=== PATIENT | female | born 1935 | race Caucasian/White ===

== ENCOUNTER 2019-02-12 22:22 | Inpatient (IN) | payer MEDICARE ==
[~2019-02-12] VITALS: Ht 154.9 cm; Wt 60.4 kg
[2019-02-13 00:45] VITALS: BP 104/59
[2019-02-13] MEDS ORDERED: MOM 30ML SUSPENSION UDC PO PRN (01:30)
[2019-02-13] MEDS: D5W/0.45% SODIUM CHLORIDE 1,000 ML IV SCH ×3 (01:59→21:45)
[2019-02-13 02:10] LABS: HEMATOCRIT 31.8 % (36.0-47.0); HEMOGLOBIN 10.8 g/dl (12.0-15.5); MEAN CORPUSCULAR HEMOGLOBIN 32.6 pg (27.0-33.0); MEAN CORPUSCULAR VOLUME 96.1 fl (80.0-96.0); PLATELET COUNT, AUTOMATED 244 10^3/uL (150-450); RED BLOOD COUNT 3.31 10^6/uL (4.00-5.40); WHITE BLOOD COUNT 14.4 10^3/uL (4.0-10.0)
[2019-02-13] MEDS ORDERED: CALC-239 PO (02:31)
[2019-02-13] MEDS ORDERED: MULTTAB61 PO (02:31)
[2019-02-13] MEDS ORDERED: ASPI81TA85 PO (02:31)
[2019-02-13] MEDS ORDERED: D-101000 PO (02:31)
[2019-02-13] MEDS ORDERED: OMEG10002 PO (02:31)
[2019-02-13] MEDS ORDERED: RANI150T PO (02:31)
[2019-02-13] MEDS ORDERED: BENA40TA7 PO (02:31)
[2019-02-13] MEDS ORDERED: PRAV20TA2 PO (02:31)
[2019-02-13 02:36] LABS: ALBUMIN 1.8 GM/DL (3.2-5.2); ALT/SGPT 56 U/L (12-78); BILIRUBIN,TOTAL 0.7 MG/DL (0.2-1.0); BLOOD UREA NITROGEN 43 MG/DL (7-18); CARBON DIOXIDE LEVEL 23 MEQ/L (21-32); CHLORIDE LEVEL 105 MEQ/L (98-107); GLOMERULAR FILTRATION RATE 28.7 (>32); GLUCOSE, FASTING 122 MG/DL (70-100); MAGNESIUM LEVEL 2.1 MG/DL (1.8-2.4); POTASSIUM SERUM 3.9 MEQ/L (3.5-5.1); SODIUM LEVEL 136 MEQ/L (136-145); TOTAL PROTEIN 5.4 GM/DL (6.4-8.2); TROPONIN I < 0.02 NG/ML (< 0.10)
--- NOTE | 2019-02-13 03:39 | HPEPDOC ---
General Date of Admission Feb 13, 2019 at 00:45 Date of Service: Feb 13, 2019 Chief Complaint The patient is a 84-year-old female admitted with a reason for visit of Pvc (Premature Ventricular Contration). Source: Patient, Family Exam Limitations: No limitations Timing/Duration: Week(s) Severity: Mild History of Present Illness Ms. Rossi is an 84 years old woman who was seen at her PCP office yesterday for generalized weakness, poor appetite, poor oral intake and confused at times. PVCs were note din the EKG, and pt was sent to ER. [facility]: WBC 16K, Hb 12.5, Na 132, Cr 1.9, Lactate 1.6, D-dime 14.35. Vitals good, afebrile. Pt had a normal CXR and head CT. UA: negative nitrate, LE 1+, plenty bacteria. PT denies urinary, GI, respiratory or cardiac symptoms. Pt was transferred here for management of suspected urosepsis and PVCs w/u. Pt has familial balance problem, but daughter reports pt is also experiencing lightheadedness recently. But hx is very vague. Daughter appears to be exaggerat ing at times, while the pt dismisses most of the daughter's concerns.. EKG: SR with frequent PVCs, no other abnormalities. Home Medications Scheduled Aspirin (Aspir 81) 81 Mg Tablet.dr, 81 MG PO DAILY, (Reported) Benazepril HCl (Benazepril HCl) 40 Mg Tablet, 40 MG PO DAILY, (Reported) Calcium Carbonate/Vitamin D3 (Calcium 600-Vit D3 200 Tablet) 1 Each Tablet, 1 TAB PO DAILY, (Reported) Cholecalciferol (Vitamin D3) (Vitamin D3) 1,000 Unit Capsule, 1,000 UNIT PO DAILY, (Reported) Multivitamin (Multivitamins) 1 Each Tablet, 1 TAB PO DAILY, (Reported) Chaplin-3/Dha/Epa/Fish Oil (Fish Oil 1,000 mg Softgel) 1 Each Capsule, 1 CAP PO DAILY, (Reported) Pravastatin Sodium (Pravastatin Sodium) 20 Mg Tablet, 20 MG PO DAILY, (Reported) Ranitidine HCl (Ranitidine HCl) 150 Mg Tablet, 1 TAB PO DAILY, (Reported) Allergies Coded Allergies: No Known Allergies (Unverified , 02/13/19) Past Medical History Medical History HTN, HLD, GERD Family History Significant Family History: Other (balance issues) Social History * Smoker: former Smoker Alcohol: Denies Drugs: denies A-FIB/CHADSVASC A-FIB History Current/History of A-Fib/PAF?: No Review of Systems Constitutional: Reports: Weakness; Denies: Chills, Fever, Malaise Eyes: Denies: Pain, Vision change ENT: Denies: Head Aches, Ear Pain Skin: Denies: Rash, Lesions Pulmonary: Denies: Dyspnea, Cough Cardiovascular: Denies: Chest Pain, Palpitations Gastrointestinal: Denies: Nausea, Vomiting, Abdominal Pain, Diarrhea Genitourinary: Denies: Dysuria, Frequency Hematologic: Denies: Bruising, Bleeding Excessively Endocrine: Denies: Polydipsia, Polyphagia Musculoskeletal: Denies: Neck Pain, Back Pain Neurological: Reports: Weakness; Denies: Numbness Psych: Reports: Mood Normal Physical Examination General Exam: Positive: Alert, Cooperative, No Acute Distress Eye Exam: Positive: PERRLA, Conjunctiva & lids normal ENT Exam: Positive: Atraumatic Neck Exam: Positive: Supple; Negative: JVD Chest Exam: Positive: Clear to auscultation, Normal air movement Heart Exam: Positive: Rate Normal, Regular Rhythm; Negative: Murmurs Abdomen Exam: Positive: Normal bowel sounds Extremity Exam: Negative: Edema, Normal pulses Skin Exam: Positive: Nl turgor and temperature Neuro Exam: Positive: Normal Speech, Strength at 5/5 X4 ext, Normal Tone Psych Exam: Positive: Mental status NL, Mood NL Vital Signs see nursing note Laboratory Data Labs 24H Laboratory Tests 2 02/13/19 02:03: Nucleated Red Blood Cells % (auto) 0.0, Anion Gap 8, Glomerular Filtration Rate 28.7L, Lactic Acid Level 0.9, Blood Urea Nitrogen 43H, Creatinine 1.80H, Sodium Level 136, Potassium Level 3.9, Chloride Level 105, Carbon Dioxide Level 23, Ca lcium Level 8.0L, Aspartate Amino Transf (AST/SGOT) 47H, Alanine Aminotransferase (ALT/SGPT) 56, Alkaline Phosphatase 101, Total Bilirubin 0.7, Total Protein 5.4L, Albumin 1.8L, Magnesium Level 2.1, Troponin I < 0.02, Albumin/Globulin Ratio 0.50L CBC/BMP Laboratory Tests 02/13/19 02:03 Red Blood Count 3.31 L, Mean Corpuscular Volume 96.1 H, Mean Corpuscular Hemoglobin 32.6, Mean Corpuscular Hemoglobin Concent 34.0, Red Cell Distribution Width 11.6, Calcium Level 8.0 L, Aspartate Amino Transf (AST/SGOT) 47 H, Alanine Aminotransferase (ALT/SGPT) 56, Alkaline Phosphatase 101, Total Bilirubin 0.7, Total Protein 5.4 L, Albumin 1.8 L Assessment/Plan Frequent PVCs - Keep in observation with Tele - Pt is asymptomatic - Mg level is normal - Repeat troponin; Echo in AM UTI is unlikely - No indication of antibiotic use int he absence of symptoms Plan / VTE VTE Prophylaxis Ordered?: No VTE Exclusion Mechanical Proph: Low Risk for VTE VTE Exclusion Pharmacological: At Low Risk for VTE Plan IVF: Initiate Diet: Continue Current Activity: Continue Current Therapy: PT, OT Anticipated Discharge: Home MICHELE GARAY MD Feb 13, 2019 03:39
[2019-02-13 06:00] VITALS: BP 127/80
[2019-02-13] MEDS: ASPIRIN 81 MG ENTERIC TAB PO SCH (09:03)
[2019-02-13] MEDS: PRAVASTATIN 20 MG TAB PO SCH (09:03)
[2019-02-13] MEDS: FAMOTIDINE 20 MG TAB PO SCH ×2 (09:03→09:08)
[2019-02-13] MEDS: BENAZEPRIL 20 MG TAB PO SCH (09:46)
[2019-02-13 10:33] LABS: CALCIUM LEVEL 8.3 MG/DL (8.8-10.2); CREATININE FOR GFR 1.66 MG/DL (0.55-1.30); GLOMERULAR FILTRATION RATE 31.5 (>32); MAGNESIUM LEVEL 2.1 MG/DL (1.8-2.4); POTASSIUM SERUM 4.3 MEQ/L (3.5-5.1)
[2019-02-13 11:28] LABS: THYROID STIMULATING HORMONE 1.07 uIU/ML (0.358-3.740)
[2019-02-13 14:00] VITALS: BP 113/62
--- NOTE | 2019-02-13 17:06 | IPN ---
DATE: 02/13/2019 The patient denies any chest pain, pressure, tightness, shortness of breath, or chest pain. Telemetry continues to have premature ventricular contractions (PVCs). The patient's magnesium and potassium have optimized at 4.3 and magnesium of 2.1. Patient complains of generalized weakness, not feeling well. No nausea or vomiting. No dysuria, urgency or frequency. OBJECTIVE: PHYSICAL EXAMINATION: Vitals: Temperature 98.4, pulse 85, respiratory rate 18, blood pressure 115/72, 95% on 2 liters nasal cannula. GENERAL: Patient is awake, alert and oriented to person. She is answering questions appropriately. No jugular venous distention (JVD). No thyromegaly. No cervical lymphadenopathy. LUNGS: Clear to auscultation. No wheezing, rales or rhonchi. HEART: S1, S2, sinus rhythm. ABDOMEN: Soft, nontender. Nondistended. Positive bowel sounds. EXTREMITIES: No cyanosis, clubbing or any pitting edema. HOSPITAL MEDICATIONS: - aspirin 81 daily - benazepril 40 mg daily - Pravachol 20 daily - Pepcid 40 daily - D5 normal saline 100 per hour - Tylenol 650 - milk of magnesium - Mylanta LABORATORY DATA: White count 14.4, hemoglobin 10, hematocrit 31, platelet count 244. Sodium 136, potassium 4.2, chloride 106, bicarbonate 22, BUN 36, creatinine 1.6. Glucose 188. Calcium of 8.3. Albumin of 1.8. ASSESSMENT AND PLAN: This is an 84-year-old female presented with generalized weakness, decreased appetite and oral intake, and confusion. Patient was found to have PVCs on EKG. CT of head and chest x-ray were normal. UA shows negative nitrites. Patient was transferred for suspected urosepsis and PVC workup. Cardiac markers were negative. Patient had no acute ischemic symptoms. ACTIVE ISSUES: 1. PVCs. Continue on telemetry. Patient's magnesium and potassium have been optimized. Echocardiogram has been ordered. Patient denies any acute ischemic symptoms. Cardiac markers were unremarkable with troponin less than 0.02. 2. Renal failure. Unknown whether this is chronic kidney disease. Creatinine is 1.8. Hydration has been provided with some improvement at 1.66. No complaints of shortness of breath. No hyperkalemia or metabolic acidosis. 3. Abnormal urinalysis. Currently does not have a repeat urinalysis here. 4. Dyslipidemia. Continue on pravastatin. 5. Hypertension. Continue on benazepril. 6. Poor appetite. Currently on regular diet. MTDD
--- NOTE | 2019-02-13 17:25 | REP ---
RENAL ULTRASOUND: Real-time sonographic evaluation of the kidneys performed and demonstrates both kidneys to be normal in size and echotexture, right kidney measuring 9.8 x 4.5 x 4.9 cm and left kidney 10.0 x 4.5 x 3.9 cm. There is no hydronephrosis bilaterally. A cyst in the mid left kidney contains a thin septation and measures 2.4 x 2.2 x 2.0 cm. Urinary bladder measures 5.2 x 7.2 x 5.0 cm for a total volume of 8 mL. There are ureteral jets in the urinary bladder with Doppler color evaluation. No gross mass or calculus is seen in the bladder. IMPRESSION: No hydronephrosis. Left renal cyst. Electronically Signed by Jorge Kessler MD 02/13/2019 05:59 P
[2019-02-13] MEDS: MAALOX 30 ML SUSP *UDC PO PRN (18:06)
[2019-02-13 22:00] VITALS: BP 103/61
[2019-02-14 06:00] VITALS: BP 114/60
[2019-02-14 06:09] LABS: BASO % 0.2 % (0.0-1.0); EOS # 0.4 10^3/uL (0.0-0.5); EOS % 2.6 % (0.0-3.0); HEMATOCRIT 31.7 % (36.0-47.0); HEMOGLOBIN 10.5 g/dl (12.0-15.5); LYMPH # 0.7 10^3/uL (1.5-5.0); LYMPH % 4.5 % (24.0-44.0); MEAN CORPUSCULAR HEMOGLOBIN 31.7 pg (27.0-33.0); MEAN CORPUSCULAR HGB CONC 33.1 g/dl (32.0-36.5); MEAN CORPUSCULAR VOLUME 95.8 fl (80.0-96.0); MONO # 1.1 10^3/uL (0.0-0.8); MONO % 7.4 % (0.0-5.0); NEUTROPHILS # 12.4 10^3/uL (1.5-8.5); NEUTROPHILS % 83.6 % (36.0-66.0); PLATELET COUNT, AUTOMATED 295 10^3/uL (150-450); RED BLOOD COUNT 3.31 10^6/uL (4.00-5.40); WHITE BLOOD COUNT 14.8 10^3/uL (4.0-10.0)
[2019-02-14 06:35] LABS: ALBUMIN 1.7 GM/DL (3.2-5.2); ALT/SGPT 45 U/L (12-78); BILIRUBIN,TOTAL 0.5 MG/DL (0.2-1.0); BLOOD UREA NITROGEN 22 MG/DL (7-18); CALCIUM LEVEL 8.4 MG/DL (8.8-10.2); CARBON DIOXIDE LEVEL 24 MEQ/L (21-32); CHLORIDE LEVEL 107 MEQ/L (98-107); GLOMERULAR FILTRATION RATE 45.8 (>32); GLUCOSE, FASTING 123 MG/DL (70-100); POTASSIUM SERUM 4.1 MEQ/L (3.5-5.1); SODIUM LEVEL 139 MEQ/L (136-145); TOTAL PROTEIN 5.2 GM/DL (6.4-8.2)
[2019-02-14 09:52] VITALS: BP 112/60
[2019-02-14] MEDS: ASPIRIN 81 MG ENTERIC TAB PO SCH (09:52)
[2019-02-14] MEDS: PRAVASTATIN 20 MG TAB PO SCH (09:52)
[2019-02-14] MEDS: BENAZEPRIL 20 MG TAB PO SCH (09:52)
[2019-02-14] MEDS: D5W/0.45% SODIUM CHLORIDE 1,000 ML IV SCH (12:03)
--- NOTE | 2019-02-14 12:40 | ECHO ---
DATE OF PROCEDURE: 02/13/2019 REFERRING PHYSICIAN: Dr. Ramey INDICATION: Abnormal ECG. HEIGHT: 61 inches. WEIGHT: 60 kg 2D MEASUREMENTS: Aortic annulus: 1.6 cm Aortic root: 3.0 cm Left atrium: 2.7 cm Ventricular septum: 1.01 cm Posterior wall: 1.92 cm Left ventricle diastole: 3.5 cm Inferior vena cava: 1.6 cm, more than 50% respiratory variation, CVP estimated to be 5-10 mmHg. DOPPLER MEASUREMENTS: Aortic valve velocity: 108 cm/s LVOT velocity: 31.0 cm/s Mitral E velocity: 62.4 cm/s Mitral A velocity: 86.3 cm/s Mitral deceleration time: 210 ms Moderate tricuspid regurgitation. Estimated right ventricle systolic pressure: 45 to 50 mmHg assuming a right atrial pressure of 5 to 10 mmHg. Very mild pulmonic regurgitation. Pulmonary artery systolic pressure: 41 mmHg. MITRAL ANNULAR TISSUE DOPPLER: E prime septal: 6.1 cm/s E prime lateral: 10.4 cm/s DESCRIPTION: Rhythm was sinus rhythm to sinus tachycardia with occasional PVCs. Image quality was fair. No pericardial effusion. This was a 2D, M-mode, color flow Doppler and pulse wave Doppler examination and included mitral annular tissue Doppler. CONCLUSIONS: 1. Normal left ventricle internal dimensions. Hyperdynamic LV systolic function with left ventricular ejection fraction of 80% by visual estimate. Grade 1 LV diastolic dysfunction. 2. Suggestive of moderate elevation of pulmonary artery systolic pressure and estimated right ventricle systolic pressure. Mild tricuspid regurgitation. Normal right ventricle size and systolic function. 3. Mild aortic valve sclerosis of a 3-cusp aortic valve. No aortic regurgitation. 4. Mild mitral annular calcification. No mitral regurgitation. 5. No pericardial effusion.
[2019-02-14 13:27] LABS: CPK CREATINE PHOSPHOKINASE 60 U/L (26-192); MB/CK RELATIVE INDEX 1.67 (< OR =4); NT-PRO BNP 1498 PG/ML (<450); TROPONIN I < 0.02 NG/ML (< 0.10)
--- NOTE | 2019-02-14 13:44 | REP ---
Portable chest, 01:28 p.m., single AP view with the patient semi upright: There are no comparison chest studies. There is a skin fold artifact in the right upper lobe. The lung mcgregor otherwise clear. Cardiac size is upper normal. The arley, mediastinum, skeletal structures are unremarkable. Impression: No acute cardiopulmonary findings. Probable skin fold artifact in the right upper lobe. Electronically Signed by Jorge Alvarenga MD 02/14/2019 01:36 P
[2019-02-14 14:00] VITALS: BP 113/67
--- NOTE | 2019-02-14 14:24 | IPN ---
DATE: 02/14/2019 SUBJECTIVE: Patient complains of generalized weakness, fatigue, increase in sleepiness, decrease in appetite with some weight loss at home, otherwise denies any nausea, vomiting, abdominal pain, bright red blood per rectum, melena, near syncope, lightheadedness or dizziness. OBJECTIVE: PHYSICAL EXAMINATION: Vital signs: Temperature 98.8, pulse 91, respiratory rate 20, blood pressure 114/60, 91% on 1 liter nasal cannula. Generally: Patient is sitting at 45-degree head of bed elevation. She has no jugular venous distention or thyromegaly. Pupils are round and reactive. Extraocular muscles are intact. No cervical lymphadenopathy, thyromegaly, moist mucous membranes. Lungs are diminished with fine crackles at the bases. Heart: S1, S2, sinus rhythm. No murmurs, rubs or gallops. Abdomen is soft, nontender, nondistended. Extremities: No cyanosis, clubbing or any pitting edema. HOSPITAL MEDICATIONS: - aspirin 81 daily - benazepril - Pravachol - Pepcid - D5 half normal saline has been discontinued. - Milk of Magnesia. - pravastatin LABORATORY DATA: White count 14, hemoglobin 10, hematocrit 31, platelet count 295. Sodium 139, potassium 4.1, chloride 107, bicarbonate 24, BUN 22, creatinine 1.2, glucose 123, albumin of 1.7, urine culture 1+ protein for urobilinogen, negative leukocyte esterase, small amorphous sediment. Renal ultrasound: No hydronephrosis. Left renal cyst. ASSESSMENT AND PLAN: This is an 84-year-old female who presented with generalized weakness, decreased appetite and oral intake and was found by primary doctor to have preventricular contractions (PVCs) on EKG. Patient was transferred to [facility] for further evaluation. CT of the head, chest, x-rays were normal. Urinalysis showed negative nitrites. Patient had a PVC workup including an echocardiogram, the report of which is still pending. She was found to have an acute kidney injury, most likely secondary to dehydration. CURRENT ISSUES: 1. PVCs on telemetry: Patient has had no sustained ventricular tachycardia. Her magnesium and potassium are within normal limits. Echo has been ordered. The report is not available. She denies any chest pain, pressure or tightness, shortness of breath. Cardiac markers were unremarkable. 2. Renal failure due to dehydration: Resolved. Patient responded to intravenous fluids. 3. Dyslipidemia: On pravastatin. 4. Hypertension: On benazepril but to be held for hypotension. 5. Failure to thrive with poor appetite: Patient is on supplemental nutrition. Deputy Juvenile Officer has been consulted. 6. Presumed urinary tract infection (UTI): Patient's urinalysis is normal. No antibiotics have been given. 7. Probable fluid overload with IV fluids given for renal failure: Will recheck a chest x-ray and low dose Lasix as needed. 8. Debility: Defer to physical therapy. Patient lives alone at home and would like to remain at home. Daughter is supportive but will be unable to provide 24/7 care. 9. Pulmonary Hypertension with mild TR: complicating care 10.Grade 2 LV diastolic dysfunction: lasix trial if blood pressure permits 11. hypoxia with ambulation: may be due to infection, fluid overload, or PE. CT chest if persistent. diurese if adequate sbp. recheck ua, blood cx if febrile. MTDD
[2019-02-14] MEDS ORDERED: FUROSEMIDE 20 MG/2 ML VIAL (J1940) IV ONE (18:30)
[2019-02-14] MEDS: ACETAMINOPHEN TAB 650MG DOSE (2X325MG) PO PRN (19:47)
[2019-02-14 23:59] VITALS: BP 114/66
[2019-02-15 06:00] VITALS: BP 119/69
[2019-02-15 08:01] LABS: HEMOGLOBIN 11.9 g/dl (12.0-15.5); MEAN CORPUSCULAR HEMOGLOBIN 32.3 pg (27.0-33.0); MEAN CORPUSCULAR VOLUME 95.1 fl (80.0-96.0); PLATELET COUNT, AUTOMATED 385 10^3/uL (150-450); RED BLOOD COUNT 3.68 10^6/uL (4.00-5.40); WHITE BLOOD COUNT 18.8 10^3/uL (4.0-10.0)
[2019-02-15 08:34] LABS: ERYTHROCYTE SEDIMENTATION RATE 66 mm/hr (0-30)
[2019-02-15 08:49] LABS: C REACTIVE PROTEIN QUANTITATIV 26.8 MG/DL (0.00-0.30); CALCIUM LEVEL 8.7 MG/DL (8.8-10.2); CREATININE FOR GFR 1.09 MG/DL (0.55-1.30); GLOMERULAR FILTRATION RATE 51.2 (>32); POTASSIUM SERUM 4.5 MEQ/L (3.5-5.1)
[2019-02-15] MEDS: FAMOTIDINE 20 MG TAB PO SCH (08:55)
[2019-02-15] MEDS: ASPIRIN 81 MG ENTERIC TAB PO SCH (08:55)
[2019-02-15] MEDS: PRAVASTATIN 20 MG TAB PO SCH (08:55)
--- NOTE | 2019-02-15 09:07 | REP ---
CHEST, PORTABLE: AP portable view of the chest is performed. COMPARISON: 02/14/2019 There is mild bibasilar fibroatelectatic change. There is possibly early infiltrate along the left diaphragm. Cardiac silhouette is slightly prominent. There is calcification of the thoracic aorta. The mediastinal silhouette is unchanged. IMPRESSION: Possible early infiltrate along the left hemidiaphragm with an area of increased density in the left retrocardiac region. Electronically Signed by Jorge Kesselr MD 02/16/2019 05:47 P
[2019-02-15] MEDS ORDERED: ISOVUE-370 76% 100ML VIAL (Q9967) As Ordered ONE (09:15)
[2019-02-15] MEDS ORDERED: FUROSEMIDE 20 MG/2 ML VIAL (J1940) IV ONE (10:00)
--- NOTE | 2019-02-15 10:55 | REP ---
CT ANGIOGRAM CHEST: TECHNIQUE: Axial contrast enhanced images from the thoracic inlet to the upper abdomen using 100 mL Isovue 370 intravenous contrast material with multiplanar reformations. There is no CT evidence of pulmonary embolism. There is no thoracic aortic aneurysm or dissection. Heart is not significantly enlarged and appears upper limits of normal in size. There is no mediastinal or hilar adenopathy. There is no axillary adenopathy. There is no pericardial effusion. There are small bilateral pleural effusions with bibasilar atelectasis/infiltrate. There is a moderate hiatal hernia. Two hypodensities in the liver probably represent cysts. IMPRESSION: No CT evidence of pulmonary embolism. Small bilateral effusions with adjacent bibasilar atelectasis/infiltrate. Moderate hiatal hernia. Electronically Signed by Jorge Kessler MD 02/16/2019 05:51 P
--- NOTE | 2019-02-15 11:06 | ECGEPIP ---
[facility] Test Date: 2019-02-15 Pat Name: GIUSEPPE BATES Department: Room: [place] [address] Gender: Female [employer]ary Engraver: : 1935 Requested By: LAYLA WILKINSON Order Number: [id number] Reading MD: Cleveland Oconnell Measurements Intervals [place] Rate: 94 P: VA: 0 QRS: 24 QRSD: 92 T: 3 QT: 327 QTc: 410 Interpretive Statements Sinus rhythm with frequent PACs and PVCs Low QRS complex voltage in the limb leads Nonspecific T wave abnormality Comparison tracing not on file Electronically Signed on 02-15-2019 11:06:34 EDT by Cleveland Oconnell
[2019-02-15 14:00] VITALS: BP 102/64
[2019-02-15] MEDS ORDERED: IPRATROPIUM 0.5MG/ALBUTEROL 2.5MG INH SOL UD 3ML (DUONEB)(J7620) NEB PRN (16:00)
[2019-02-15] MEDS ORDERED: cefTRIAXone SOD 1 GM in D5W MINI-BAG PLUS 50 ML IV SCH (16:00)
--- NOTE | 2019-02-15 17:12 | IPNPDOC ---
Date Seen The patient was seen on 02/15/19. Progress Note SUBJECTIVE: fever 102.9 yesterday but denies dysuria, urgency, frequency, chills, flank pain, nausea, vomiting, abdominal pain, cough, but still with persistent MIRELES. Echo: pulm htn mild TR LV grade 2 diastolic dysfunction. CXR 02/14/19: no acute process. pt denies rhinorrhea, ear pain,discharge. denies LE edema, skin rash. OBJECTIVE: PHYSICAL EXAMINATION: Vital signs: pls see below Generally: Patient is sitting at 45-degree head of bed elevation. She has no jugular venous distention or thyromegaly. Pupils are round and reactive. Extraocular muscles are intact. No cervical lymphadenopathy, thyromegaly, moist mucous membranes. Lungs are diminished with fine crackles at the bases. Heart: S1, S2, sinus rhythm. No murmurs, rubs or gallops. Abdomen is soft, nontender, nondistended. Extremities: No cyanosis, clubbing or any pitting edema. LABORATORY DATA: Renal ultrasound: No hydronephrosis. Left renal cyst. ASSESSMENT AND PLAN: This is an 84-year-old female who presented with generalized weakness, decreased appetite and oral intake and was found by primary doctor to have preventricular contractions (PVCs) on EKG. Patient was transferred to [facility] for [facility] evaluation. CT of the head, chest, x-rays were normal. Urinalysis showed negative nitrites. Patient had a PVC workup including an echocardiogram, the report of which is still pending. She was found to have an acute kidney injury, most likely secondary to dehydration. Fever 102.9 infectious workup : negative UA. CXR 02/[address] chest: bibasilar atelectasis infiltrates b/l small effusions. negative respiratory panel. no PE on CT chest. no edema on b/l LE. probable gram negative bibasilar pneumonia with elevated CRP, white count, and fever. sputum cx, urine strep and legionella. on iv ceftriaxone azithro PVCs on telemetry: Patient has had no sustained ventricular tachycardia. Her magnesium and potassium are within normal limits. Echo negative. She denies any chest pain, pressure or tightness, shortness of breath. Cardiac markers were unremarkable. Renal failure due to dehydration: Resolved. Patient responded to intravenous fluids. Dyslipidemia: On pravastatin. Hypertension:held benazepril to allow permissive hypertension to allow for diuresis for possible fluid overload. Failure to thrive with poor appetite: Patient is on supplemental nutrition. Health Specialist has been consulted. Debility: Defer to physical therapy. Patient lives alone at home and would like to remain at home. Daughter is supportive but will be unable to provide 24/7 care. Pulmonary Hypertension with mild TR: complicating care Grade 2 LV diastolic dysfunction with probable fluid overload from ivfluids given for renal failure: lasix trial if blood pressure permits hold benazepril to allow enough blood pressure to tolerate lasix. hypoxia with ambulation: may be due to infection, fluid overload. CT chest reviewed. on antibiotics. prn nebs and lasix to be given if sbp permits. dispostion: 3-4days until clinical status improves. not safe for discharge. lives alone. VS, I&O, 24H, Fishbone Vital Signs/I&O Vital Signs Date Time Temp Pulse Resp B/P (MAP) Pulse Ox O2 Delivery O2 Flow Rate FiO2 02/15/19 14:00 96.2 108 18 102/64 (77) 93 02/14/19 19:45 1.0 I&O- Last 24 Hours up to 6 AM 02/15/19 06:00 Intake Total 1200 ml Output Total 850 ml Balance 350 ml Laboratory Data 24H LABS Laboratory Tests 2 02/15/19 07:38: Nucleated Red Blood Cells % (auto) 0.0, Erythrocyte Sedimentation Rate 66H, Anion Gap 9, Glomerular Filtration Rate 51.2, Blood Urea Nitrogen 17, Creatinine 1.09, Sodium Level 139, Potassium Level 4.5, Chloride Level 105, Carbon Dioxide Level 25, Calcium Level 8.7L, C-Reactive Protein, Quantitative 26.80H 02/15/19 07:42: 02/15/19 07:56: 02/15/19 07:57: Urine Color YELLOW, Urine Appearance HAZY, Urine pH 5.0, Urine Specific [place] 1.018, Urine Protein 2+H, Urine Glucose (UA) NEGATIVE, Urine Ketones NEGATIVE, Urine Blood 1+H, Urine Nitrite NEGATIVE, Urine Bilirubin NEGATIVE, Urine Urobilinogen 0.2, Urine Leukocyte Esterase NEGATIVE, Urine WBC (Auto) 4H, Urine RBC (Auto) 2, Urine Hyaline Casts (Auto) 1, Urine Bacteria (Auto) NEGATIVE, Urine Squamous Epithelial Cells 1, Urine Amorphous Sediment MODERATEH, Urine Mucus (Auto) SMALL, Urine Sperm (Auto) , Lactic Acid Level 1.4 CBC/BMP Laboratory Tests 02/15/19 07:38 Red Blood Count 3.68 L, Mean Corpuscular Volume 95.1, Mean Corpuscular Hemoglobin 32.3, Mean Corpuscular Hemoglobin Concent 34.0, Red Cell Distribution Width 12.0, Calcium Level 8.7 L Microbiology Microbiology 02/15/19 Blood Culture, Received Pending 02/15/19 Blood Culture, Received Pending 02/15/19 Respiratory Virus Panel (PCR) ([facility]) - Final, Complete 02/15/19 Urine Culture, Received Pending BAKARI LANDIN MD Feb 15, 2019 17:05
[2019-02-15] MEDS: AZITHROMYCIN INJ 500 MG, VIAL MATE ADAPTER 1 EACH in D5W 250 ML IV SCH (17:37)
[2019-02-15] MEDS: ACETAMINOPHEN TAB 650MG DOSE (2X325MG) PO PRN (20:29)
[2019-02-15 22:00] VITALS: BP 146/78
[2019-02-16] MEDS: ACETAMINOPHEN TAB 650MG DOSE (2X325MG) PO PRN ×2 (05:58→18:14)
[2019-02-16 06:00] VITALS: BP 130/71
[2019-02-16] MEDS: PRAVASTATIN 20 MG TAB PO SCH (09:24)
[2019-02-16] MEDS: ASPIRIN 81 MG ENTERIC TAB PO SCH (09:24)
[2019-02-16] MEDS: FAMOTIDINE 20 MG TAB PO SCH (09:24)
[2019-02-16] MEDS ORDERED: LEVALBUTEROL 1.25 MG/0.5 ML CONCENTRATE NEB INH PRN (09:30)
[2019-02-16] MEDS ORDERED: IPRATROPIUM 0.02% SOLN 0.5MG/2.5 ML NEB INH PRN (09:30)
[2019-02-16] MEDS ORDERED: FUROSEMIDE 20 MG/2 ML VIAL (J1940) IV ONE (09:30)
[2019-02-16 10:00] VITALS: BP 125/62
[2019-02-16 10:01] LABS: BASO # 0.1 10^3/uL (0.0-0.2); BASO % 0.3 % (0.0-1.0); EOS # 0.5 10^3/uL (0.0-0.5); EOS % 2.5 % (0.0-3.0); HEMATOCRIT 35.2 % (36.0-47.0); HEMOGLOBIN 11.6 g/dl (12.0-15.5); LYMPH # 0.5 10^3/uL (1.5-5.0); LYMPH % 2.8 % (24.0-44.0); MEAN CORPUSCULAR HEMOGLOBIN 31.6 pg (27.0-33.0); MEAN CORPUSCULAR VOLUME 95.9 fl (80.0-96.0); MONO # 0.7 10^3/uL (0.0-0.8); MONO % 3.6 % (0.0-5.0); NEUTROPHILS # 16.8 10^3/uL (1.5-8.5); NEUTROPHILS % 86.9 % (36.0-66.0); PLATELET COUNT, AUTOMATED 446 10^3/uL (150-450); RED BLOOD COUNT 3.67 10^6/uL (4.00-5.40); WHITE BLOOD COUNT 19.3 10^3/uL (4.0-10.0)
[2019-02-16 10:29] LABS: ALBUMIN 1.9 GM/DL (3.2-5.2); ALT/SGPT 50 U/L (12-78); BILIRUBIN,TOTAL 0.6 MG/DL (0.2-1.0); BLOOD UREA NITROGEN 25 MG/DL (7-18); CALCIUM LEVEL 9.2 MG/DL (8.8-10.2); CARBON DIOXIDE LEVEL 26 MEQ/L (21-32); CHLORIDE LEVEL 102 MEQ/L (98-107); CK-MB VALUE MASS < 1.0 NG/ML (<3.6); CPK CREATINE PHOSPHOKINASE 54 U/L (26-192); CREATININE FOR GFR 1.45 MG/DL (0.55-1.30); GLOMERULAR FILTRATION RATE 36.8 (>32); GLUCOSE, FASTING 195 MG/DL (70-100); MAGNESIUM LEVEL 2.1 MG/DL (1.8-2.4); MB/CK RELATIVE INDEX 1.85 (< OR =4); NT-PRO BNP 2014 PG/ML (<450); POTASSIUM SERUM 4.4 MEQ/L (3.5-5.1); SODIUM LEVEL 137 MEQ/L (136-145); TOTAL PROTEIN 5.1 GM/DL (6.4-8.2); TROPONIN I < 0.02 NG/ML (< 0.10)
[2019-02-16 10:32] LABS: ERYTHROCYTE SEDIMENTATION RATE 68 mm/hr (0-30)
[2019-02-16] MEDS: IPRATROPIUM 0.02% SOLN 0.5MG/2.5 ML NEB INH SCH ×4 (11:18→23:01)
[2019-02-16] MEDS: LEVALBUTEROL 1.25 MG/0.5 ML CONCENTRATE NEB INH SCH ×4 (11:18→23:01)
[2019-02-16] MEDS: guaiFENesin ER 600 MG TAB PO SCH ×2 (11:53→21:14)
[2019-02-16] MEDS: PIPERACILLIN/TAZOBACTAM SOD 2.25 GM in D5W MINI-BAG PLUS 50 ML IV SCH ×2 (11:53→18:14)
--- NOTE | 2019-02-16 11:56 | PHACANCOPD ---
PHARMACY VANCOMYCIN DOSING Pt Demographics Demographics Patient Age:84 , Weight:60.300 , Gender: female Adjusted Body Weight Date: 02/16/19, Adjusted Body Weight: Kg Events Past 24 Hours Events Past 24 Hours: YES: Fever, Elevation in WBC; NO: Dialysis, Diuretic Therapy, Change in CrCl, Pending Diagnostics, Pending Procedures, Other Vancomycin Vancomycin indication: Pneumonia, respiratory infection Vancomycin Target Ranges: 15-20 mcg/ml Vancomycin Load Y/N: No Load Dose Date Time Vancomycin Load Dose: Date: Time: Vancomycin Dose Date: 02/16/19. Current Vancomycin Dose: [1 gram every 24 hours] Intermittent Dosing?: No Labs Labs Vital Signs Label Value Date Time Patient Temperature 100.6 degrees F 02/16/19 0645 Temperature Source Oral 02/16/19 0645 Patient Temperature 102.7 degrees F 02/16/19 0600 Temperature Source Oral 02/16/19 0600 Patient Temperature 99.8 degrees F 02/15/19 2200 Temperature Source Oral 02/15/19 2200 Patient Temperature 102.8 degrees F 02/15/19 2028 Temperature Source Oral 02/15/19 2028 Patient Temperature 96.2 degrees F 02/15/19 1400 Temperature Source Temporal 02/15/19 1400 Blood Pressure Assessment 130/71 (90) 02/16/19 0600 Blood Pressure Assessment 146/78 (100) 02/15/19 2200 Blood Pressure Assessment 102/64 (77) 02/15/19 1400 Respiratory Rate 20 bpm 02/16/19 0600 Respiratory Rate 16 bpm 02/15/19 2200 Respiratory Rate 18 bpm 02/15/19 1400 Item Value Date Time White Blood Count 14.4 10^3/uL H 02/13/19 0203 White Blood Count 14.8 10^3/uL H 02/14/19 0555 White Blood Count 18.8 10^3/uL H 02/15/19 0738 White Blood Count 19.3 10^3/uL H 02/16/19 0934 Creatinine 1.09 MG/DL 02/15/19 0738 Glomerular Filtration Rate 51.2 02/15/19 0738 Creatinine 1.45 MG/DL H 02/16/19 0934 Glomerular Filtration Rate 36.8 02/16/19 0934 C-Reactive Protein, Quantitative 29.70 MG/DL H 02/16/19 0934 C-Reactive Protein, Quantitative 26.80 MG/DL H 02/15/19 0738 Micro Microbiology 02/15/19 Blood Culture - Preliminary, Resulted No growth after 24 hours . All specim... 02/15/19 Blood Culture - Preliminary, Resulted No growth after 24 hours . All specim... 02/15/19 Respiratory Virus Panel (PCR) ([facility]) - Final, Complete 02/15/19 Urine Culture - Final, Complete Creatinine Clearance Date:02/16/19. Creatinine Clearance: [24.46 mL/min]. Pending Labs MRSA PCR screen Assessment and Plan Maintaining Current Dose?: No Reason for dose change: No Dose Change Pharmacist Note Pharmacist Note Date: 02/16/19. Pharmacist note: Patient presented to the hospital after she was found to have PVC. Vancomycin ordered on day 4 of hospital stay after increasing white blood cell count and fever. We will initiate her on vancomycin 1 gram every 24 hours with a trough scheduled for 02/18 @ 1200 to determine steady state. A MRSA PCR screen was ordered. We will continue to monitor and make adjustments as needed. [facility] Feb 16, 2019 11:56
[2019-02-16] MEDS ORDERED: VANCOMYCIN HCL 1,000 MG, VIAL MATE ADAPTER 1 EACH in D5W 250 ML IV SCH (13:00)
[2019-02-16 14:00] VITALS: BP 121/64
[2019-02-16 16:00] VITALS: BP 148/84
[2019-02-16 16:55] VITALS: BP 116/56
[2019-02-16] MEDS ORDERED: NS 1,000 ML IV SCH (17:00)
[2019-02-16 17:08] LABS: HEMATOCRIT 37.8 % (36.0-47.0); HEMOGLOBIN 12.7 g/dl (12.0-15.5); MEAN CORPUSCULAR HEMOGLOBIN 32.4 pg (27.0-33.0); MEAN CORPUSCULAR HGB CONC 33.6 g/dl (32.0-36.5); MEAN CORPUSCULAR VOLUME 96.4 fl (80.0-96.0); PLATELET COUNT, AUTOMATED 536 10^3/uL (150-450); RED BLOOD COUNT 3.92 10^6/uL (4.00-5.40); WHITE BLOOD COUNT 21.8 10^3/uL (4.0-10.0)
[2019-02-16 17:19] LABS: AMYLASE 39 U/L (25-115); BLOOD UREA NITROGEN 25 MG/DL (7-18); CALCIUM LEVEL 9.2 MG/DL (8.8-10.2); CARBON DIOXIDE LEVEL 24 MEQ/L (21-32); CHLORIDE LEVEL 99 MEQ/L (98-107); CK-MB VALUE MASS 1.2 NG/ML (<3.6); CPK CREATINE PHOSPHOKINASE 93 U/L (26-192); CREATININE FOR GFR 1.55 MG/DL (0.55-1.30); GLOMERULAR FILTRATION RATE 34.1 (>32); GLUCOSE, FASTING 161 MG/DL (70-100); MB/CK RELATIVE INDEX 1.29 (< OR =4); POTASSIUM SERUM 3.9 MEQ/L (3.5-5.1); SODIUM LEVEL 136 MEQ/L (136-145); TROPONIN I < 0.02 NG/ML (< 0.10)
--- NOTE | 2019-02-16 17:34 | IPNPDOC ---
Date Seen The patient was seen on 02/16/19. Progress Note SUBJECTIVE: persistent fever 102 despite iv ceftriaxone. blood cx pending. c/o nausea, decreased appetite. had bowel movement. no vomiting, tolerating her liquid diet c/o chills. no dysuria. ua negative. cxr: bibasilar infiltrates. dry cough difficult to expectorate despite mucines. OBJECTIVE: PHYSICAL EXAMINATION: Vital signs: pls see below Generally: speaks in full sentences. no conversational dyspnea or use of respiratory accessory muscles. She has no jugular venous distention or thyromegaly. Pupils are round and reactive. Extraocular muscles are intact. No cervical lymphadenopathy, thyromegaly, moist mucous membranes. Lungs are diminished bibasilar crackles. Heart: S1, S2, sinus rhythm. No murmurs, rubs or gallops. Abdomen is soft, nontender, nondistended. Extremities: No cyanosis, clubbing or any pitting edema. LABORATORY DATA: Renal ultrasound: No hydronephrosis. Left renal cyst. ASSESSMENT AND PLAN: This is an 84-year-old female who presented with generalized weakness, decreased appetite and oral intake and was found by primary doctor to have preventricular contractions (PVCs) on EKG. Patient was transferred to [facility] for further evaluation. CT of the head, chest, x-rays were normal. Urinalysis showed negative nitrites. Patient had a PVC workup including an echocardiogram, the report of which is still pending. She was found to have an acute kidney injury, most likely secondary to dehydration. sepsis with fever 102.9 wbc 19 rr 28 hr115 probable gram negative bibasilar pneumonia with elevated CRP, white count, and fever. sputum cx, urine strep and legionella. s/p iv ceftriaxone azithro, but changed to possible hospital acquired now since occured 48hrs after admission on iv zosyn and vanco. azithro for atypicals. CT chest: bibasilar atelectasis infiltrates b/l small effusions. negative respiratory panel. no PE on CT chest. probable gram negative bibasilar pneumonia on iv zosyn and vanco. azithro for atypicals. acute hypoxic respiratory failure due to pna on o2 PVCs on telemetry: Patient has had no sustained ventricular tachycardia. Her magnesium and potassium are within normal limits. Echo negative. She denies any chest pain, pressure or tightness, shortness of breath. Cardiac markers were unremarkable. Renal failure due to dehydration: gentle hydration Dyslipidemia: On pravastatin. Hypertension:held benazepril to allow permissive hypertension to allow for diuresis for possible fluid overload. Failure to thrive with poor appetite: Patient is on supplemental nutrition. Curtain Worker has been consulted. Debility: Defer to physical therapy. Patient lives alone at home and would like to remain at home. Daughter is supportive but will be unable to provide 18/12 care. Pulmonary Hypertension with mild TR: complicating care Grade 2 LV diastolic dysfunction monitor respiratory status transfer to pcu for sepsis. VS, I&O, 24H, Fishbone Vital Signs/I&O Vital Signs Date Time Temp Pulse Resp B/P (MAP) Pulse Ox O2 Delivery O2 Flow Rate FiO2 02/16/19 16:00 100.4 106 28 148/84 (105) 02/16/19 14:00 94 2.0 I&O- Last 24 Hours up to 6 AM 02/16/19 06:00 Intake Total 850 ml Output Total 800 ml Balance 50 ml Laboratory Data 24H LABS Laboratory Tests 2 02/16/19 09:34: Immature Granulocyte % (Auto) 3.9H, White Blood Count 19.3H, Red Blood Count 3.67L, Hemoglobin 11.6L, Hematocrit 35.2L, Mean Corpuscular Volume 95.9, Mean Corpuscular Hemoglobin 31.6, Mean Corpuscular Hemoglobin Concent 33.0, Red Cell Distribution Width 12.1, Platelet Count 446, Neutrophils (%) (Auto) 86.9H, Lymphocytes (%) (Auto) 2.8L, Monocytes (%) (Auto) 3.6, Eosinophils (%) (Auto) 2.5, Basophils (%) (Auto) 0.3, Neutrophils # (Auto) 16.8H, Lymphocytes # (Auto) 0.5L, Monocytes # (Auto) 0.7, Eosinophils # (Auto) 0.5, Basophils # (Auto) 0.1, Nucleated Red Blood Cells % (auto) 0.0, Erythrocyte Sedimentation Rate 68H, Anion Gap 9, Glomerular Filtration Rate 36.8, Lactic Acid Level 2.0, Blood Urea Nitrogen 25H, Creatinine 1.45H, Sodium Level 137, Potassium Level 4.4, Chloride Level 102, Carbon Dioxide Level 26, Calcium Level 9.2, Aspartate Amino Transf (AST/SGOT) 45H, Alanine Aminotransferase (ALT/SGPT) 50, Total Creatine Kinase 54, Alkaline Phosphatase 131H, Total Bilirubin 0.6, Total Protein 5.1L, Albumin 1.9L, Magnesium Level 2.1, Creatine Kinase MB < 1.0, Creatine Kinase MB Relative Index 1.85, Troponin I < 0.02, C-Reactive Protein, Quantitative 29.70H, IJ-Apf-M-Type Natriuretic Peptide 2014H, Albumin/Globulin Ratio 0.59L 02/16/19 16:25: 02/16/19 16:30: Nucleated Red Blood Cells % (auto) 0.0, Anion Gap 13, Glomerular Filtration Rate 34.1, Blood Urea Nitrogen 25H, Creatinine 1.55H, Sodium Level 136, Potassium Level 3.9, Chloride Level 99, Carbon Dioxide Level 24, Calcium Level 9.2, Total Creatine Kinase 93, Creatine Kinase MB 1.2, Creatine Kinase MB Relative Index 1.29, Troponin I < 0.02, Amylase Level 39 CBC/BMP Laboratory Tests 02/16/19 09:34 Red Blood Count 3.67 L, Mean Corpuscular Volume 95.9, Mean Corpuscular Hemoglobin 31.6, Mean Corpuscular Hemoglobin Concent 33.0, Red Cell Distribution Width 12.1, Neutrophils (%) (Auto) 86.9 H, Lymphocytes (%) (Auto) 2.8 L, Monocytes (%) (Auto) 3.6, Eosinophils (%) (Auto) 2.5, Basophils (%) (Auto) 0.3, Neutrophils # (Auto) 16.8 H, Lymphocytes # (Auto) 0.5 L, Monocytes # (Auto) 0.7, Eosinophils # (Auto) 0.5, Basophils # (Auto) 0.1, Calcium Level 9.2, Aspartate Amino Transf (AST/SGOT) 45 H, Alanine Aminotransferase (ALT/SGPT) 50, Total Creatine Kinase 54, Alkaline Phosphatase 131 H, Total Bilirubin 0.6, Total Prote in 5.1 L, Albumin 1.9 L 02/16/19 16:30 Red Blood Count 3.92 L, Mean Corpuscular Volume 96.4 H, Mean Corpuscular Hemoglobin 32.4, Mean Corpuscular Hemoglobin Concent 33.6, Red Cell Distribution Width 12.4, Calcium Level 9.2, Total Creatine Kinase 93 Microbiology Microbiology 02/16/19 Blood Culture, Received Pending 02/15/19 Blood Culture - Preliminary, Resulted No growth after 24 hours . All specim... 02/15/19 Blood Culture - Preliminary, Resulted No growth after 24 hours . All specim... 02/16/19 MRSA Screen, Received Pending 02/15/19 Respiratory Virus Panel (PCR) (RICARDO) - Final, Complete 02/15/19 Urine Culture - Final, Complete BAKARI LANDIN MD Feb 16, 2019 17:34
[2019-02-16] MEDS: AZITHROMYCIN INJ 500 MG, VIAL MATE ADAPTER 1 EACH in D5W 250 ML IV SCH (17:38)
[2019-02-16 20:00] VITALS: BP 114/57
[2019-02-17] VITALS (10 sets, daily range): BP systolic 106–168; BP diastolic 56–81
[2019-02-17] MEDS: PIPERACILLIN/TAZOBACTAM SOD 2.25 GM in D5W MINI-BAG PLUS 50 ML IV SCH ×5 (00:24→23:43)
[2019-02-17] MEDS: IPRATROPIUM 0.02% SOLN 0.5MG/2.5 ML NEB INH SCH ×5 (03:55→20:33)
[2019-02-17] MEDS: LEVALBUTEROL 1.25 MG/0.5 ML CONCENTRATE NEB INH SCH ×5 (03:55→20:34)
[2019-02-17] MEDS: ONDANSETRON 4 MG ORAL DISINTEGRATING TAB (Q0162 PER 1MG) PO PRN (05:43)
[2019-02-17] MEDS: ACETAMINOPHEN TAB 650MG DOSE (2X325MG) PO PRN ×3 (05:49→23:06)
[2019-02-17 05:53] LABS: BASO # 0.1 10^3/uL (0.0-0.2); BASO % 0.5 % (0.0-1.0); EOS # 0.5 10^3/uL (0.0-0.5); EOS % 2.6 % (0.0-3.0); HEMOGLOBIN 11.8 g/dl (12.0-15.5); LYMPH # 0.6 10^3/uL (1.5-5.0); LYMPH % 3.3 % (24.0-44.0); MEAN CORPUSCULAR HGB CONC 33.7 g/dl (32.0-36.5); MEAN CORPUSCULAR VOLUME 94.9 fl (80.0-96.0); MONO # 0.3 10^3/uL (0.0-0.8); MONO % 1.7 % (0.0-5.0); NEUTROPHILS # 16.7 10^3/uL (1.5-8.5); NEUTROPHILS % 87.1 % (36.0-66.0); PLATELET COUNT, AUTOMATED 501 10^3/uL (150-450); RED BLOOD COUNT 3.69 10^6/uL (4.00-5.40); WHITE BLOOD COUNT 19.2 10^3/uL (4.0-10.0)
[2019-02-17 06:11] LABS: CALCIUM LEVEL 9.3 MG/DL (8.8-10.2); CREATININE FOR GFR 1.41 MG/DL (0.55-1.30); POTASSIUM SERUM 3.9 MEQ/L (3.5-5.1)
[2019-02-17] MEDS ORDERED: ONDANSETRON 4MG/2ML VIAL (J2405) IV PRN (07:45)
[2019-02-17] MEDS ORDERED: DEXTROSE 50% 50 ML SYRINGE IV PRN (07:45)
[2019-02-17] MEDS ORDERED: GLUCOSE 4 GM CHEW TABLET PO PRN (07:45)
[2019-02-17] MEDS ORDERED: GLUCAGON FOR INJ 1 MG VIAL (J1610) SC PRN (07:45)
--- NOTE | 2019-02-17 07:45 | REP ---
CT ABDOMEN AND PELVIS WITHOUT CONTRAST: CT abdomen and pelvis performed without oral or IV contrast. Sagittal and coronal reconstruction images are performed. Bibasilar infiltrates and effusions appear similar to the prior CT of the chest 02/15/2019. A few hypodensities in the liver appear to represent cysts. The patient has had a prior cholecystectomy. I do not see evidence of significant biliary dilatation. The spleen is normal in size with no gross abnormality. Adrenals are normal. Pancreas is grossly unremarkable. There is a cyst in the upper left kidney which measures 2.5 cm. There is no hydronephrosis bilaterally. There is moderate atherosclerotic calcification of the abdominal aorta without aneurysm. I see no adenopathy. There is no free air. There is no definite bowel wall thickening. The appendix is normal. There is mild diffuse mesenteric edema with some mild scattered free fluid in the right lower quadrant and pelvis. No definite pelvic mass is seen. Urinary bladder is mildly distended and grossly unremarkable. There are degenerative changes of the spine. There is a large hiatal hernia. IMPRESSION: Bibasilar infiltrates and diffusions in the visualized lung bases unchanged since CT chest 02/15/2019. Nonspecific mesenteric edema with mild free fluid in the right lower quadrant and pelvis. No free air. No definite bowel wall thickening. Normal appendix. Electronically Signed by Jorge Kessler MD 02/18/2019 09:48 A
--- NOTE | 2019-02-17 08:01 | REP ---
CHEST, PORTABLE: AP portable view of the chest was performed. COMPARISON: 02/15/2019. There are bibasilar infiltrates and effusions which are better seen on CT. Left basilar opacity and fluid on today's radiograph appears unchanged. Heart is slightly enlarged. There is calcification of the thoracic aorta. The mediastinal silhouette is unchanged. IMPRESSION: Stable bibasilar infiltrates and effusions, better seen by CT scan performed today. Mild cardiomegaly. Electronically Signed by Jorge Kessler MD 02/18/2019 09:50 A
[2019-02-17] MEDS: guaiFENesin ER 600 MG TAB PO SCH ×2 (10:08→20:47)
[2019-02-17] MEDS: PRAVASTATIN 20 MG TAB PO SCH (10:09)
[2019-02-17] MEDS: ASPIRIN 81 MG ENTERIC TAB PO SCH (10:09)
[2019-02-17] MEDS: FAMOTIDINE 20 MG TAB PO SCH (10:09)
[2019-02-17] MEDS: NS 1,000 ML IV SCH (10:10)
[2019-02-17] MEDS: AZITHROMYCIN INJ 500 MG, VIAL MATE ADAPTER 1 EACH in D5W 250 ML IV SCH (17:32)
--- NOTE | 2019-02-17 22:29 | IPNPDOC ---
Date Seen The patient was seen on 02/17/19. Progress Note SUBJECTIVE: respiratory panel negative. still c/o nonproductive cough. ct chest: bibasilar infiltrates still febrile with hypoxia requiring supplemental oxygen. jimenez, persistent nausea, poor appetite. but had solid bowel movement and no abd pain. OBJECTIVE: PHYSICAL EXAMINATION: Vital signs: pls see below Generally: coughing. no conversational dyspnea or use of respiratory accessory muscles. She has no jugular venous distention or thyromegaly. Pupils are round and reactive. Extraocular muscles are intact. No cervical lymphadenopathy, thyromegaly, moist mucous membranes. Lungs are diminished bibasilar crackles. Heart: S1, S2, sinus rhythm. No murmurs, rubs or gallops. Abdomen is soft, nontender, nondistended. Extremities: No cyanosis, clubbing or any pitting edema. LABORATORY DATA: Renal ultrasound: No hydronephrosis. Left renal cyst. ASSESSMENT AND PLAN: This is an 84-year-old female who presented with generalized weakness, decreased appetite and oral intake and was found by primary doctor to have preventricular contractions (PVCs) on EKG. Patient was transferred to [facility] for further evaluation. CT of the head, chest, x-rays were normal. Urinalysis showed negative nitrites. Patient had a PVC workup including an echocardiogram, the report of which is still pending. She was found to have an acute kidney injury, most likely secondary to dehydration. sepsis with fever 102.9 wbc 19 rr 28 hr115 s/p iv ceftriaxone azithro, but changed to possible hospital acquired now since occured 48hrs after admission on iv zosyn and vanco. azithro for atypicals. CT chest: bibasilar atelectasis infiltrates b/l small effusions. negative respir atory panel. no PE on CT chest. persistently febrile despite iv abx, which may still be viral infection since procalcitonin was negative. however, lactic acid was high. ct abd neg. probable gram negative bibasilar pneumonia on iv zosyn and vanco. azithro for atypicals. acute hypoxic respiratory failure due to pna on o2 PVCs on telemetry: Patient has had no sustained ventricular tachycardia. Her magnesium and potassium are within normal limits. Echo negative. She denies any chest pain, pressure or tightness, shortness of breath. Cardiac markers were unremarkable. Renal failure due to dehydration: gentle hydration Dyslipidemia: On pravastatin. Hypertension:held benazepril due to sepsis. Failure to thrive with poor appetite: Patient is on supplemental nutrition. Manager Gyn has been consulted. Debility: Defer to physical therapy. Patient lives alone at home and would like to remain at home. Daughter is supportive but will be unable to provide 18/12 care. Pulmonary Hypertension with mild TR: complicating care Grade 2 LV diastolic dysfunction monitor respiratory status VS, I&O, [facility] Vital Signs/I&O Vital Signs Date Time Temp Pulse Resp B/P (MAP) Pulse Ox O2 Delivery O2 Flow Rate FiO2 02/17/19 22:01 98 94 2.0 02/17/19 20:50 99.5 02/17/19 20:00 18 106/58 (74) I&O- Last 24 Hours up to 6 AM 02/17/19 05:59 Intake Total 740 ml Output Total 1250 ml Balance -510 ml Laboratory Data 24H LABS Laboratory Tests 2 02/17/19 05:19: Immature Granulocyte % (Auto) 4.8H, White Blood Count 19.2H, Red Blood Count 3.69L, Hemoglobin 11.8L, Hematocrit 35.0L, Mean Corpuscular Volume 94.9, Mean Corpuscular Hemoglobin 32.0, Mean Corpuscular Hemoglobin Concent 33.7, Red Cell Distribution Width 12.2, Platelet Count 501H, Neutrophils (%) (Auto) 87.1H, Lymphocytes (%) (Auto) 3.3L, Monocytes (%) (Auto) 1.7, Eosinophils (%) (Auto) 2.6, Basophils (%) (Auto) 0.5, Neutrophils # (Auto) 16.7H, Lymphocytes # (Auto) 0.6L, Monocytes # (Auto) 0.3, Eosinophils # (Auto) 0.5, Basophils # (Auto) 0.1, Nucleated Red Blood Cells % (auto) 0.0, Anion Gap 7L, Glomerular Filtration Rate 38.0, Blood Urea Nitrogen 23H, Creatinine 1.41H, Sodium Level 138, Potassium Level 3.9, Chloride Level 104, Carbon Dioxide Level 27, Calcium Level 9.3 02/17/19 07:28: Lactic Acid Level 1.8 CBC/BMP Laboratory Tests 02/17/19 05:19 Red Blood Count 3.69 L, Mean Corpuscular Volume 94.9, Mean Corpuscular Hemoglobin 32.0, Mean Corpuscular Hemoglobin Concent 33.7, Red Cell Distribution Width 12.2, Neutrophils (%) (Auto) 87.1 H, Lymphocytes (%) (Auto) 3.3 L, Monocytes (%) (Auto) 1.7, Eosinophils (%) (Auto) 2.6, Basophils (%) (Auto) 0.5, Neutrophils # (Auto) 16.7 H, Lymphocytes # (Auto) 0.6 L, Monocytes # (Auto) 0.3, Eosinophils # (Auto) 0.5, Basophils # (Auto) 0.1, Calcium Level 9.3 Microbiology Microbiology 02/16/19 Blood Culture - Preliminary, Resulted No growth after 24 hours . All specim... 02/16/19 Blood Culture - Preliminary, Resulted No growth after 24 hours . All specim... 02/15/19 Blood Culture - Preliminary, Resulted No Growth after 48 hours. All Specime... 02/15/19 Blood Culture - Preliminary, Resulted No Growth after 48 hours. All Specime... 02/16/19 MRSA Screen, Received Pending 02/15/19 Respiratory Virus Panel (PCR) (RICARDO) - Final, Complete 02/15/19 Urine Culture - Final, Complete BAKARI LANDIN MD Feb 17, 2019 22:29
[2019-02-18] MEDS: NS 1,000 ML IV SCH (01:02)
[2019-02-18] MEDS: IPRATROPIUM 0.02% SOLN 0.5MG/2.5 ML NEB INH SCH ×6 (03:33→20:08)
[2019-02-18] MEDS: LEVALBUTEROL 1.25 MG/0.5 ML CONCENTRATE NEB INH SCH ×6 (03:33→20:09)
[2019-02-18 04:00] VITALS: BP 133/62
[2019-02-18] MEDS: PIPERACILLIN/TAZOBACTAM SOD 2.25 GM in D5W MINI-BAG PLUS 50 ML IV SCH ×4 (05:41→23:27)
[2019-02-18 07:45] VITALS: BP 141/67
[2019-02-18] MEDS: guaiFENesin ER 600 MG TAB PO SCH ×2 (09:09→21:02)
[2019-02-18] MEDS: ASPIRIN 81 MG ENTERIC TAB PO SCH (09:09)
[2019-02-18] MEDS: FAMOTIDINE 20 MG TAB PO SCH (09:09)
[2019-02-18] MEDS: PRAVASTATIN 20 MG TAB PO SCH (09:10)
[2019-02-18] MEDS: MAALOX 30 ML SUSP *UDC PO PRN (09:21)
[2019-02-18] MEDS: ONDANSETRON 4 MG ORAL DISINTEGRATING TAB (Q0162 PER 1MG) PO PRN (09:22)
[2019-02-18 11:50] VITALS: BP 118/60
[2019-02-18] MEDS: ACETAMINOPHEN TAB 650MG DOSE (2X325MG) PO PRN ×2 (12:26→23:27)
--- NOTE | 2019-02-18 12:44 | IPNPDOC ---
Text Note Date of Service The patient was seen on 02/18/19. NOTE SUBJECTIVE: had a spike of fever last evening, no fever this am. very poor appetite. respiratory panel negative. still c/o nonproductive cough. ct chest: bibasilar infiltrates still febrile with hypoxia requiring supplemental oxygen. jimenez, persistent nausea, poor appetite. but had solid bowel movement and no abd pain. OBJECTIVE: PHYSICAL EXAMINATION: Vital signs: pls see below Generally: coughing. no conversational dyspnea or use of respiratory accessory muscles. NECK: She has no jugular venous distention or thyromegaly. No cervical lymphadenopathy, thyromegaly, HEENT: Pupils are round and reactive. Extraocular muscles are intact. moist mucous membranes. Lungs are diminished bibasilar crackles. Heart: S1, S2, sinus rhythm. No murmurs, rubs or gallops. Abdomen is soft, nontender, nondistended. Extremities: No cyanosis, clubbing or any pitting edema. NEURO: No focal neurodeficits, alert, oriented x 3. LABORATORY DATA: Reviewed. Renal ultrasound: No hydronephrosis. Left renal cyst. ASSESSMENT AND PLAN: This is an 84-year-old female who presented with generalized weakness, decreased appetite and oral intake and was found by primary doctor to have preventricular contractions (PVCs) on EKG. Patient was transferred to [facility] for further evaluation. CT of the head, chest, x-rays were normal. Urinalysis showed negative nitrites. Patient had a PVC workup including an echocardiogram, the report of which is still pending. She was found to have an acute kidney injury, most likely secondary to dehydration. Sepsis due to possible HCAP hospital acquired now since occured 48hrs after admission on iv zosyn azithro for atypicals. CT chest: bibasilar atelectasis infiltrates b/l small effusions. negative respiratory panel. no PE on CT chest. MRSA screen negative. HCAP on iv zosyn and azithro for atypicals. blood cultures negative till date. No sputum available yet. urine legionella and strep pneumoniae pending. Acute hypoxic respiratory failure due to pna on o2 PVCs on telemetry: Nonsignificant. Patient has had no sustained ventricular tachycardia. Her magnesium and potassium are within normal limits. Echo negative. She denies any chest pain, pressure or tightness, shortness of breath. Cardiac markers were unremarkable. Acute Renal failure due to dehydration: gentle hydration Dyslipidemia: On pravastatin. Hypertension:held benazepril due to sepsis. Failure to thrive with poor appetite: Patient is on supplemental nutrition. Pulp Grinder Feeder has been consulted. Debility: Defer to physical therapy. Patient lives alone at home and would like to remain at home. Daughter is supportive but will be unable to provide 18/12 care. Pulmonary Hypertension with mild TR: complicating care Grade 2 LV diastolic dysfunction monitor respiratory status VS,Fishbone, I+O VS, Fishbone, I+O Vital Signs Date Time Temp Pulse Resp B/P (MAP) Pulse Ox O2 Delivery O2 Flow Rate FiO2 02/18/19 11:50 99.1 105 18 118/60 (06) 93 2.0 I&O- Last 24 Hours up to 6 AM 02/18/19 06:00 Intake Total 1103 ml Output Total 801 ml Balance 302 ml THAD WILEY MD Feb 18, 2019 12:44
[2019-02-18 13:03] LABS: BASO # 0.1 10^3/uL (0.0-0.2); BASO % 0.3 % (0.0-1.0); EOS # 0.5 10^3/uL (0.0-0.5); EOS % 1.7 % (0.0-3.0); HEMATOCRIT 31.8 % (36.0-47.0); HEMOGLOBIN 10.5 g/dl (12.0-15.5); LYMPH # 0.5 10^3/uL (1.5-5.0); MEAN CORPUSCULAR HEMOGLOBIN 31.3 pg (27.0-33.0); MEAN CORPUSCULAR VOLUME 94.6 fl (80.0-96.0); MONO # 0.5 10^3/uL (0.0-0.8); MONO % 1.9 % (0.0-5.0); NEUTROPHILS # 24.6 10^3/uL (1.5-8.5); NEUTROPHILS % 90.1 % (36.0-66.0); PLATELET COUNT, AUTOMATED 569 10^3/uL (150-450); RED BLOOD COUNT 3.36 10^6/uL (4.00-5.40); WHITE BLOOD COUNT 27.3 10^3/uL (4.0-10.0)
[2019-02-18 15:46] VITALS: BP 123/68
[2019-02-18 16:06] LABS: CLOSTRIDIUM DIFFICILE PCR NEGATIVE (NEGATIVE)
[2019-02-18] MEDS: AZITHROMYCIN INJ 500 MG, VIAL MATE ADAPTER 1 EACH in D5W 250 ML IV SCH (16:21)
[2019-02-18 20:00] VITALS: BP 126/68
[2019-02-18 23:59] VITALS: BP 134/65
[2019-02-19] VITALS (7 sets, daily range): BP systolic 98–152; BP diastolic 59–82
[2019-02-19] MEDS: ONDANSETRON 4 MG ORAL DISINTEGRATING TAB (Q0162 PER 1MG) PO PRN (05:29)
[2019-02-19] MEDS: PIPERACILLIN/TAZOBACTAM SOD 2.25 GM in D5W MINI-BAG PLUS 50 ML IV SCH ×4 (05:29→23:58)
[2019-02-19 06:27] LABS: BASO # 0.1 10^3/uL (0.0-0.2); BASO % 0.2 % (0.0-1.0); EOS # 0.6 10^3/uL (0.0-0.5); EOS % 2.9 % (0.0-3.0); HEMATOCRIT 27.9 % (36.0-47.0); HEMOGLOBIN 9.3 g/dl (12.0-15.5); LYMPH # 0.6 10^3/uL (1.5-5.0); LYMPH % 2.7 % (24.0-44.0); MEAN CORPUSCULAR HEMOGLOBIN 31.3 pg (27.0-33.0); MEAN CORPUSCULAR HGB CONC 33.3 g/dl (32.0-36.5); MEAN CORPUSCULAR VOLUME 93.9 fl (80.0-96.0); MONO # 0.4 10^3/uL (0.0-0.8); NEUTROPHILS # 17.9 10^3/uL (1.5-8.5); PLATELET COUNT, AUTOMATED 514 10^3/uL (150-450); RED BLOOD COUNT 2.97 10^6/uL (4.00-5.40); WHITE BLOOD COUNT 20.4 10^3/uL (4.0-10.0)
[2019-02-19 06:57] LABS: ALBUMIN 1.5 GM/DL (3.2-5.2); ALT/SGPT 32 U/L (12-78); BILIRUBIN,TOTAL 0.4 MG/DL (0.2-1.0); BLOOD UREA NITROGEN 14 MG/DL (7-18); CALCIUM LEVEL 9.1 MG/DL (8.8-10.2); CARBON DIOXIDE LEVEL 25 MEQ/L (21-32); CHLORIDE LEVEL 109 MEQ/L (98-107); CREATININE FOR GFR 0.98 MG/DL (0.55-1.30); FERRITIN 932 NG/ML (8-252); GLOMERULAR FILTRATION RATE 57.8 (>32); GLUCOSE, FASTING 116 MG/DL (70-100); LDH LACTATE DEHYDROGENASE 166 U/L (84-246); POTASSIUM SERUM 4.2 MEQ/L (3.5-5.1); RHEUMATOID FACTOR QUANT < 10.0 IU/ML (<15.0); SODIUM LEVEL 142 MEQ/L (136-145); TOTAL PROTEIN 4.3 GM/DL (6.4-8.2)
[2019-02-19 07:05] LABS: ERYTHROCYTE SEDIMENTATION RATE 64 mm/hr (0-30)
[2019-02-19] MEDS: LEVALBUTEROL 1.25 MG/0.5 ML CONCENTRATE NEB INH SCH ×4 (08:00→20:00)
[2019-02-19] MEDS: IPRATROPIUM 0.02% SOLN 0.5MG/2.5 ML NEB INH SCH ×2 (08:00)
[2019-02-19] MEDS: guaiFENesin ER 600 MG TAB PO SCH ×2 (08:56→20:28)
[2019-02-19] MEDS: PRAVASTATIN 20 MG TAB PO SCH (08:56)
[2019-02-19] MEDS: ASPIRIN 81 MG ENTERIC TAB PO SCH (08:56)
[2019-02-19] MEDS: FAMOTIDINE 20 MG TAB PO SCH (08:56)
--- NOTE | 2019-02-19 11:08 | CR ---
DATE OF CONSULTATION: 02/18/2019 INFECTIOUS DISEASE CONSULTATION: Asked to consult by hospitalist for evaluation of fever of unknown origin. HISTORY OF PRESENT ILLNESS: Mrs. Rossi is a pleasant 84-year-old female who is very healthy until about 10 days prior to admission when she started developing anorexia, decreased appetite and generalized weakness. She just progressively started feeling weaker and went to see her primary care provider who was concerned about her being dehydrated and having generalized weakness with poor appetite being confused at times. She did an EKG, she has frequent premature ventricular contractions (PVCs). Her labs in the [place] emergency room (ER) had a white count of 16,000, mild hyponatremia with a sodium of 132, creatinine of 1.9 and therefore the patient was admitted for dehydration and further workup. Initially she was afebrile until the next day after admission when she starts having fevers up to 102.5. The patient had a normal chest x-ray but because she has a history of reflux and chronic cough, usually mostly after she eats she had a chest CT which showed bilateral pleural effusions, there was some concern of pneumonia and therefore she was started on broad-spectrum antibiotics. Initially she received a dose of ceftriaxone and Zithromax on 02/15. On 02/16 she received vancomycin and Zosyn and currently the patient is on Zosyn and Zithromax. She has been on antibiotics for the past 4 days with persistent fevers. She never had urinary symptoms even though her urinalysis had some bacteria and leukocytes. The patient denied dysuria, hematuria or flank pain. She really denies all symptoms except for gastrointestinal (GI) discomfort. Mostly her GI discomfort is she is nauseous, she has vomited a couple times and she has no appetite. She denied having diarrhea until she came in and has been given all those antibiotics. Mother wants to go home. She feels well other than a fever. PAST MEDICAL HISTORY: Is significant for hypertension, osteoporosis, hyperlipidemia and gastroesophageal reflux disease with a hiatus hernia. PAST SURGICAL HISTORY: Bilateral cataract surgery done in 2002, cholecystectomy in 2006. SOCIAL HISTORY: She lives alone. She is a former smoker. She does not drink or use alcohol. She lives in her own house and drives. She has a very supportive family. REVIEW OF SYSTEMS: She complains of weakness. She has some fevers. No chills. She denies any chest pain, headache, no ear pain. She has a mild cough mostly nonproductive. No chest pain or palpitations. She has nausea and some vomiting, decreased appetite but no abdominal pain. She has had diarrhea since hospitalization. C. difficile was negative. She denies any tick bites, rashes, polydipsia or polyuria. PHYSICAL EXAMINATION: On physical exam she is a healthy looking female in no acute distress. Temperature is 100.9 today with a T-max of 102.3, 102.3 yesterday, pulse 64, respirations 18, blood pressure 123/68, O2 sat 99% on 2 liters nasal cannula. ALLERGIES: No known drug allergies. MEDICATIONS: - Xopenex 1.25 mg every 4 as needed - Zosyn 2.25 grams IV every 6 hours - albuterol as needed - Zithromax one 500 mg IV every 24 hours - Pravachol 20 mg by mouth every day - aspirin 81 mg daily - famotidine 40 mg by mouth daily - Tylenol as needed LABORATORY DATA: White count was 14.4 on admission and now is up to 727.3 with 4% immature granulocytes 90% neutrophils, 2% lymphocytes, 2% monocytes. Sodium 138, potassium 3.9, chloride 104, bicarb 27, BUN 23, creatinine 1.41, glucose 143, calcium 9.3, lactic acid 1.8 down from 3.3, total CPK 93. Troponin less than 0.02, CRP 26.8-29.7. Blood cultures four sets were negative. Urine cultures were negative. Respiratory panel was negative MRSA screen was negative. Imaging study - CT abdomen and pelvis shows bibasilar infiltrates and effusions in the visualized small field. I reviewed the CT with Dr. Devi, she does not see any evidence of pneumonia. There is nonspecific mesenteric edema with mild free fluid in the right lower quadrant and pelvis. No free air. No definite bowel wall thickening. Normal appendix. Hiatus hernia noted. CT chest x-ray stable bibasilar lower infiltrates and effusion, better seen on CT than on x-rays. Renal ultrasound done on 02/13 shows no hydronephrosis, left renal cyst, right kidney normal. No masses or calculi in the bladder. PHYSICAL EXAM: Heart: Normal S1-S2 with no murmurs, rubs or gallops noted. Lungs: Diminished breath sounds at the bases but clear. Abdomen: Soft, nontender. No hepatosplenomegaly. Back: No CVA or lumbosacral tenderness. Extremities: No clubbing, cyanosis or edema. No calf tenderness. Skin: Has a faint papular rash mostly involving the right lower quadrant and left lower quadrant is nonpruritic also in the posterior aspect of the back, but mostly localized to wear her Depends are. There is no rashes anywhere on her upper chest or all extremities. Neurologic: Exam alert and oriented times three. Motor strength is normal. Neck: Is supple. No jugular venous distention (JVD). No bruits. No neck stiffness. IMPRESSION: This is an 84-year-old female who was admitted with generalized weakness, dehydration, mild lactic acidosis and renal insufficiency which has improved mostly from dehydration. Her currently only symptoms are fever, abdominal discomfort, anorexia and having no appetite. She has a history of hiatus hernia and reflux which usually is controlled with H2 antagonist. The patient has never had a colonoscopy or an endoscopy. She has had developed diarrhea since on broad-spectrum antibiotics including a combination of vancomycin, Zosyn, and ceftriaxone with no improvement of her fever and 4 days of Zithromax. I do not suspect this to be a bacterial infection, her procalcitonin was barely elevated at 0.48. I am not sure if this is a viral infection on autoimmune disease,inflammatory bowel disease or viral etiology. At this point I do not need to use broad- spectrum antibiotics. PLAN: Discontinue IV Zithromax. Consider discontinuing IV Zosyn. C. difficile was sent and was negative. Consider consultation with gastroenterology and obtaining endoscopy and colonoscopy for further workup. Add AMMY, rheumatoid factor, Lyme serology. LDH. Echocardiogram has been done and review, normal left ventricular systolic function, ejection fraction 80%, grade 1 diastolic dysfunction, moderate elevated pulmonary artery pressure, mild tricuspid regurgitation. No aortic regurgitation. No evidence of endocarditis. Repeat CBC, sed rate, procalcitonin in the morning. Thank you for consultation. We will continue to followup. NATALIE
[2019-02-19] MEDS ORDERED: ONDANSETRON 4MG/2ML VIAL (J2405) IV PRN (11:15)
[2019-02-19] MEDS: PANTOPRAZOLE 40MG INJ (PROTONIX) (C9113) IV SCH (12:01)
[2019-02-19] MEDS: ACETAMINOPHEN TAB 650MG DOSE (2X325MG) PO PRN (12:20)
[2019-02-19 14:18] LABS: BODY FLUID CULTURE Not Indicated (.); LEGIONELLA ANTIGEN URINE Negative (Negative); ORGANISM ID Not indicated. (.); SPECIMEN SOURCE Urine (.); URINE STREP PNEUMONIAE ANTIGEN Negative (Negative)
[2019-02-19] MEDS ORDERED: MOM 30ML SUSPENSION UDC PO ONE (16:00)
[2019-02-19] MEDS ORDERED: SLF 3 ML SYR IV PRN (17:00)
[2019-02-19] MEDS ORDERED: POLYETHYLENE GLYCOL (MIRALAX) 238GM BOTTLE PO ONE (18:00)
[2019-02-19] MEDS: SLF 3 ML SYR IV SCH (20:28)
--- NOTE | 2019-02-19 21:37 | IPNPDOC ---
Text Note Date of Service The patient was seen on 02/19/19. NOTE SUBJECTIVE: Continues to spike fevers daily. Now also noted to have a rash on the right flank and right back erythematous maculopapular in nature, non itchy. Continues to have very poor appetite , nausea and heart burn. She also had several episodes of watery stools yesterday. C diff pcr are negative. Has been seen by ID in view normal procalcitonin and negative cultures as per ID unlikely infectious process may be a inflammatory process in going on . Blood work for autoimmune diseases has been ordered. I have consulted GI for her persistent gi complaints and the new diarrhea. OBJECTIVE: PHYSICAL EXAMINATION: Vital signs: pls see below Generally: coughing. no conversational dyspnea however noted to be tachypniec. NECK: JVD negative, No thyromegaly. No cervical lymphadenopathy or thyromegaly, HEENT: Pupils are round and reactive. Extraocular muscles are intact. moist mucous membranes. Lungs are diminished bibasilar crackles with coarse ronchorous breath sounds. Heart: S1, S2, sinus rhythm. No murmurs, rubs or gallops. Abdomen is soft, nontender, non distended, bowel sounds normal Extremities: No cyanosis, clubbing or any pitting edema. NEURO: No focal neurodeficits, alert, oriented x 3. LABORATORY DATA: Reviewed. Renal ultrasound: No hydronephrosis. Left renal cyst. ASSESSMENT AND PLAN: This is an 84-year-old female who presented with generalized weakness, decreased appetite and oral intake, nausea for about 2 weeks prior to admission and was found by primary doctor to have preventricular contractions (PVCs) on EKG. Patient was transferred to [facility] for further evaluation. Pateint was admitted for generalized weakness, anorexia. CT of the head, chest, x-rays were normal. Urinalysis showed negative nitrites. Patient was noted to have mild LEI felt to be due to dehydration, low albumin, anemia , elevated WBC. Patient had a PVC workup including an echocardiogram . The day after admission patient started spiking high grade fevers with further elevation of WBC with elevated ESR. She also developed shortness of breath and started requiring oxygen. CT angio of the chest and CT of abdomen and pelvis was done. They revealed signs of fluid overload with bilateral effusions and atelectasis / infiltrates . CT abdomen showed some mesenteric edema and some fluid collection in the lower quadrant. It was felt patient may be having pneumonia so started on ceftriaxone and azithromycin after 1 dose of ceftriaxone was it was changed to Zosyn. Inspite of being on broad spectrum antibiotic coverage patient continues to have daily spiking temperatures. She has also developed watery diarrhea after antibiotics. C. diff pcr has been negative. Continues to have gastrointestinal complaints, unable to eat, still requiring oxygen. ID and GI was consulted. ID does not feel this is an infectious process more an inflammatory process. As per ID pateint does not have bacterial infection. Could still have a viral infection going on. SIRS/Sepsis unsure if there is any infection at all . Low probability. could have viral infection in view of the new rash Could be an autoimmune process and allt eh signs and symptoms may related to inflammation. azithromycin has been stopped will consider stopping zosyn also after the repeat procalcitonin comes back Auoimmune work up has been ordered. Pneumonia HCAP/Community acquired low probability in view of normal procalcitonin . Procalcitonin has been repeated. on iv zosyn for now. blood cultures negative till date. No sputum available yet. urine legionella and strep pneumoniae pending. Anorexia, nausea, diarrhea, anemia have consulted GI for EGD and Colonoscopy on 02/20/19 Acute hypoxic respiratory failure Grade 2 LV diastolic dysfunction on Echo will get repeat CXR to evaluate for any pulmonary congestion and CHF possibly due to inflammatory disease. may have some fluid overload on o2 PVCs on telemetry: Nonsignificant. Patient has had no sustained ventricular tachycardia. Her magnesium and potassium are within normal limits. Echo negative.. Cardiac markers were unremarkable. Acute Renal failure resolved. Dyslipidemia: On pravastatin. Hypertension: held benazepril Failure to thrive with poor appetite: Patient is on supplemental nutrition. Embossed Or Impressed Lettering Painter has been consulted. Debility: Defer to physical therapy. Patient lives alone at home and would like to remain at home. Daughter is supportive but will be unable to provide / care. Pulmonary Hypertension with mild TR: complicating care DVT prophylaxis ordered. VS,Fishbone, I+O VS, Fishbone, I+O Laboratory Tests 02/19/19 06:02 Red Blood Count 2.97 L, Mean Corpuscular Volume 93.9, Mean Corpuscular Hemoglobin 31.3, Mean Corpuscular Hemoglobin Concent 33.3, Red Cell Distribution Width 12.8, Neutrophils (%) (Auto) 88.0 H, Lymphocytes (%) (Auto) 2.7 L, Monocytes (%) (Auto) 2.0, Eosinophils (%) (Auto) 2.9, Basophils (%) (Auto) 0.2, Neutrophils # (Auto) 17.9 H, Lymphocytes # (Auto) 0.6 L, Monocytes # (Auto) 0.4, Eosinophils # (Auto) 0.6 H, Basophils # (Auto) 0.1, Calcium Level 9.1, Aspartate Amino Transf (AST/SGOT) 28, Alanine Aminotransferase (ALT/SGPT) 32, Lactate Dehydrogenase 166, Alkaline Phosphatase 105, Total Bilirubin 0.4, Total Protein 4.3 L, Albumin 1.5 #L Vital Signs Date Time Temp Pulse Resp B/P (MAP) Pulse Ox O2 Delivery O2 Flow Rate FiO2 02/19/19 20:00 98.2 95 18 152/72 (98) 90 02/19/19 16:00 23.0 I&O- Last 24 Hours up to 6 AM 02/19/19 06:00 Intake Total 1025 ml Output Total 450 ml Balance 575 ml THAD WILEY MD Feb 19, 2019 21:37
[2019-02-20] MEDS: LEVALBUTEROL 1.25 MG/0.5 ML CONCENTRATE NEB INH SCH ×2 (02:00→07:33)
[2019-02-20 04:00] VITALS: BP 132/68
[2019-02-20] MEDS ORDERED: POLYETHYLENE GLYCOL (MIRALAX) 238GM BOTTLE PO ONE (05:00)
[2019-02-20] MEDS: SLF 3 ML SYR IV SCH ×3 (05:20→20:04)
[2019-02-20] MEDS: PIPERACILLIN/TAZOBACTAM SOD 2.25 GM in D5W MINI-BAG PLUS 50 ML IV SCH (05:20)
[2019-02-20] MEDS: ACETAMINOPHEN TAB 650MG DOSE (2X325MG) PO PRN ×2 (05:28→17:49)
[2019-02-20 06:23] LABS: BASO # 0.1 10^3/uL (0.0-0.2); BASO % 0.4 % (0.0-1.0); EOS # 0.7 10^3/uL (0.0-0.5); HEMATOCRIT 30.4 % (36.0-47.0); HEMOGLOBIN 9.9 g/dl (12.0-15.5); LYMPH # 0.7 10^3/uL (1.5-5.0); LYMPH % 3.1 % (24.0-44.0); MEAN CORPUSCULAR HEMOGLOBIN 31.9 pg (27.0-33.0); MEAN CORPUSCULAR HGB CONC 32.6 g/dl (32.0-36.5); MEAN CORPUSCULAR VOLUME 98.1 fl (80.0-96.0); MONO # 0.5 10^3/uL (0.0-0.8); MONO % 2.4 % (0.0-5.0); NEUTROPHILS # 18.8 10^3/uL (1.5-8.5); NEUTROPHILS % 86.9 % (36.0-66.0); PLATELET COUNT, AUTOMATED 524 10^3/uL (150-450); WHITE BLOOD COUNT 21.7 10^3/uL (4.0-10.0)
[2019-02-20 06:44] LABS: CALCIUM LEVEL 9.6 MG/DL (8.8-10.2); CREATININE FOR GFR 1.06 MG/DL (0.55-1.30); GLOMERULAR FILTRATION RATE 52.8 (>32); POTASSIUM SERUM 3.8 MEQ/L (3.5-5.1)
--- NOTE | 2019-02-20 07:51 | REP ---
Portable chest x-ray: Single view. History: Short of breath. Comparison study: February 16, 2019. Findings: There are clips in right upper quadrant of the abdomen. A large hiatal hernia is seen overlying the heart. Pulmonary vasculature is somewhat cephalized. Heart size is borderline. No definite pleural effusion is seen. Interstitial markings are slightly prominent. Question infiltrate left base. Impression: Hiatal hernia. Borderline heart size. Pulmonary vascular cephalization. Question infiltrate left base. Electronically Signed by Milind Hernandez MD 02/20/2019 07:43 A
[2019-02-20 08:00] VITALS: BP 134/78
[2019-02-20] MEDS: guaiFENesin ER 600 MG TAB PO SCH ×2 (08:45→20:04)
[2019-02-20] MEDS: PANTOPRAZOLE 40MG INJ (PROTONIX) (C9113) IV SCH (08:45)
[2019-02-20] MEDS: PRAVASTATIN 20 MG TAB PO SCH (08:45)
[2019-02-20] MEDS: ASPIRIN 81 MG ENTERIC TAB PO SCH (08:45)
--- NOTE | 2019-02-20 08:47 | IPNPDOC ---
Text Note Date of Service The patient was seen on 02/20/19. NOTE SUBJECTIVE: Continues to spike fevers daily. Also noted to have a rash on the right flank and back erythematous maculopapular in nature, non itchy. Continues to have very poor appetite , nausea and heart burn. Says the diarrhea after the bowel prep is too much for her. Getting out of bed and changing every time is too much work. Has been seen by ID in view normal procalcitonin and negative cultures as per ID unlikely infectious process may be a inflammatory process in going on . Blood work for autoimmune diseases has been ordered. OBJECTIVE: PHYSICAL EXAMINATION: Vital signs: pls see below Generally: Laying down in bed in no acute distress, weak and tired looking. NECK: JVD negative, No thyromegaly. No cervical lymphadenopathy or thyromegaly, HEENT: Pupils are round and reactive. Extraocular muscles are intact. moist mucous membranes. Lungs are diminished bibasilar crackles otherwise clear to auscultation no wheezing on ronchi Heart: S1, S2, sinus rhythm. No murmurs, rubs or gallops. Abdomen is soft, nontender, non distended, bowel sounds normal Extremities: No cyanosis, clubbing or any pitting edema. Skin: erythematous maculopapular rash on the back and right side. NEURO: No focal neurodeficits, alert, oriented x 3. LABORATORY DATA: Reviewed. Renal ultrasound: No hydronephrosis. Left renal cyst. ASSESSMENT AND PLAN: This is an 84-year-old female who presented with generalized weakness, decreased appetite and oral intake, nausea for about 2 weeks prior to admission and was found by primary doctor to have preventricular contractions (PVCs) on EKG. Patient was transferred to [facility] for further evaluation. Pateint was admitted for generalized weakness, anorexia. CT of the head, chest, x-rays were normal. Urinalysis showed negative nitrites. Patient was noted to have mild LEI felt to be due to dehydration, low albumin, anemia , elevated WBC. Patient had a PVC workup including an echocardiogram . The day after admission patient started spiking high grade fevers with further elevation of WBC with elevated ESR. She also developed shortness of breath and started requiring oxygen. CT angio of the chest and CT of abdomen and pelvis was done. They revealed signs of fluid overload with bilateral effusions and atelectasis / infiltrates . CT abdomen showed some mesenteric edema and some fluid collection in the lower quadrant. It was felt patient may be having pneumonia so started on ceftriaxone and azithromycin after 1 dose of ceftriaxone was it was changed to Zosyn. Inspite of being on broad spectrum antibiotic coverage patient continues to have daily spiking temperatures. She has also developed watery diarrhea after antibiotics. C. diff pcr has been negative. Continues to have gastrointestinal complaints, unable to eat, still requiring oxygen. ID and GI was consulted. ID does not feel this is an infectious process more an inflammatory process. As per ID pateint does not have bacterial infection. Could still have a viral infection going on. SIRS/Sepsis unsure if there is any infection at all . Low probability. could have viral infection in view of the new rash Could be an autoimmune process and all the signs and symptoms may related to inflammation. azithromycin has been stopped will consider stopping zosyn also after the repeat procalcitonin comes back Autoimmune work up has been ordered. stopped antibiotics Pneumonia HCAP/Community acquired low probability in view of low procalcitonin before. Procalcitonin has been repeated which is 2.03 New CXR question about left lower lobe infiltrate. Ihave stopped the antibiotics. for now. will discuss with ID whether to restart Zosyn or not. blood cultures negative till date. urine legionella and strep pneumoniae pending. Anorexia, nausea, diarrhea, anemia Large hiatal hernia. have consulted GI for EGD and Colonoscopy on 02/20/19 Acute hypoxic respiratory failure Grade 2 LV diastolic dysfunction on Echo CXR 02/20 not much change from before, there is some pulmonary vascular prominence may have some fluid overload. Will give a dose of lasix today. on o2 PVCs on telemetry: Nonsignificant. Patient has had no sustained ventricular tachycardia. Her magnesium and potassium are within normal limits. Echo negative.. Cardiac markers were unremarkable. Acute Renal failure resolved. Dyslipidemia: On pravastatin. Hypertension: held benazepril Failure to thrive with poor appetite: Patient is on supplemental nutrition. Bark Press Operator has been consulted. Debility: Defer to physical therapy. Patient lives alone at home and would like to remain at home. Daughter is supportive but will be unable to provide 24/7 care. Pulmonary Hypertension with mild TR: complicating care DVT prophylaxis ordered. VS,Fishbone, I+O VS, Fishbone, I+O Laboratory Tests 02/20/19 06:07 Red Blood Count 3.10 L, Mean Corpuscular Volume 98.1 H, Mean Corpuscular Hemoglobin 31.9, Mean Corpuscular Hemoglobin Concent 32.6, Red Cell Distribution Width 12.8, Neutrophils (%) (Auto) 86.9 H, Lymphocytes (%) (Auto) 3.1 L, Monocytes (%) (Auto) 2.4, Eosinophils (%) (Auto) 3.0, Basophils (%) (Auto) 0.4, Neutrophils # (Auto) 18.8 H, Lymphocytes # (Auto) 0.7 L, Monocytes # (Auto) 0.5, Eosinophils # (Auto) 0.7 H, Basophils # (Auto) 0.1, Calcium Level 9.6 Vital Signs Date Time Temp Pulse Resp B/P (MAP) Pulse Ox O2 Delivery O2 Flow Rate FiO2 02/20/19 08:01 2.0 02/20/19 08:00 97.1 57 22 134/78 (96) 95 I&O- Last 24 Hours up to 6 AM 02/20/19 06:00 Intake Total 250 ml Output Total 200 ml Balance 50 ml THAD WILEY MD Feb 20, 2019 08:47
[2019-02-20 12:00] VITALS: BP 124/66
[2019-02-20] MEDS ORDERED: PROPOFOL 200 MG/20 ML VIAL As Ordered ONE (14:09)
[2019-02-20] MEDS ORDERED: fentaNYL 100 MCG/2 ML INJECTION (J3010) As Ordered ONE (14:09)
[2019-02-20] MEDS ORDERED: LIDOCAINE 2% INJ 100 MG/5 ML SDV (FOR ANES.) As Ordered ONE (14:09)
--- NOTE | 2019-02-20 14:28 | ROOR ---
Patient Name: Felicia Rossi Procedure Date: 02/20/2019 2:07 PM Date of : 1935 Age: 84 Room: [facility] Gender: Female Note Status: Finalized Procedure: Upper GI endoscopy Indications: Malnutrition, Weight loss Providers: Cleveland GARCIA MD Referring MD: 2. Inpatient 2. Inpatient Requesting Provider: Medicines: Monitored Anesthesia Care Complications: No immediate complications. Procedure: Pre-Anesthesia Assessment: - The heart rate, respiratory rate, oxygen saturations, blood pressure, adequacy of pulmonary ventilation, and response to care were monitored throughout the procedure. The Endoscope was introduced through the mouth, and advanced to the second part of duodenum. The upper GI endoscopy was accomplished without difficulty. The patient tolerated the procedure well. Findings: Moderately severe esophagitis was found in the lower third of the esophagus. Biopsies were taken with a cold forceps for histology. A medium-sized hiatal hernia was present. The exam of the stomach was otherwise normal. The examined duodenum was normal. Biopsies were taken with a cold forceps for histology. Impression: - Moderate esophagitis. Biopsied. - Otherwise normal esophagus. - Medium-sized hiatal hernia. - Mildly atrophic appearing mucosa, but otherwise normal stomach. Biopsied. - Normal examined duodenum. Biopsied. Recommendation: - Use a proton pump inhibitor PO daily for 3 months. - Follow an antireflux regimen. Cleveland Garcia MD Cleveland GARCIA MD 02/20/2019 2:27:56 PM Electronically signed by Cleveland GARCIA MD Number of Addenda: 0 Note Initiated On: 02/20/2019 2:07 PM Estimated Blood Loss: Estimated blood loss: none.
--- NOTE | 2019-02-20 14:59 | ROOR ---
Patient Name: Felicia Rossi Procedure Date: 02/20/2019 2:06 PM Date of : 1935 Age: 84 Room: [facility] Gender: Female Note Status: Finalized Procedure: Colonoscopy Indications: Change in bowel habits, Failure to thrive, Weight loss Providers: Cleveland GARCIA MD Referring MD: 2. Inpatient 2. Inpatient Requesting Provider: Medicines: Monitored Anesthesia Care Complications: No immediate complications. Procedure: Pre-Anesthesia Assessment: - The heart rate, respiratory rate, oxygen saturations, blood pressure, adequacy of pulmonary ventilation, and response to care were monitored throughout the procedure. The Colonoscope was introduced through the anus and advanced to 10 cm into the ileum. The colonoscopy was performed without difficulty. The patient tolerated the procedure well. The quality of the bowel preparation was good. Findings: The perianal and digital rectal examinations were normal. Three semi-sessile polyps were found in the hepatic flexure and ascending colon. The polyps were 5 to 9 mm in size. These polyps were removed with a piecemeal technique using a cold snare. Resection and retrieval were complete. Internal hemorrhoids were found during retroflexion. The hemorrhoids were moderate. Multiple small-mouthed diverticula were found in the sigmoid colon. The exam was otherwise normal throughout the examined colon. The terminal ileum appeared normal. Biopsies for histology were taken with a cold forceps from the entire colon for evaluation of microscopic colitis. Impression: - Three 5 to 9 mm polyps at the hepatic flexure and in the ascending colon, removed piecemeal using a cold snare. Resected and retrieved. - Internal hemorrhoids. - Mild diverticulosis in the sigmoid colon. - The colon is otherwise normal. - The examined portion of the ileum was normal. - Biopsies were taken with a cold forceps from the entire colon for evaluation of microscopic colitis. Recommendation: - Telephone endoscopist for pathology results in 2 weeks. - Repeat colonoscopy for surveillance based on pathology results. - Return patient to hospital [facility] for ongoing care. - Resume regular diet. Cleveland Garcia MD Cleveland GARCIA MD 02/20/2019 2:59:08 PM Electronically signed by Cleveland GARCIA MD Number of Addenda: 0 Note Initiated On: 02/20/2019 2:06 PM Estimated Blood Loss: Estimated blood loss: none.
[2019-02-20 16:00] VITALS: BP 121/58
[2019-02-20 20:00] VITALS: BP 118/60
[2019-02-20 23:59] VITALS: BP 128/64
[2019-02-21 00:08] LABS: ANTINUCLEAR ANTIBODIES DIRECT Negative (Negative); Lyme Disease IgG/IgM Antibodie <0.91 ISR (0.00-0.90); Lyme Disease IgM Ab Quantitati <0.80 index (0.00-0.79)
[2019-02-21] MEDS: DOXYCYCLINE HYCLATE 100 MG in D5W MINI-BAG PLUS 100 ML IV SCH ×2 (00:31→11:14)
[2019-02-21 04:00] VITALS: BP 130/60
[2019-02-21] MEDS: ACETAMINOPHEN TAB 650MG DOSE (2X325MG) PO PRN ×2 (04:13→17:23)
[2019-02-21] MEDS: SLF 3 ML SYR IV SCH ×3 (05:05→22:29)
[2019-02-21 05:45] LABS: BASO # 0.1 10^3/uL (0.0-0.2); BASO % 0.4 % (0.0-1.0); EOS # 0.9 10^3/uL (0.0-0.5); EOS % 4.2 % (0.0-3.0); HEMATOCRIT 30.4 % (36.0-47.0); LYMPH # 0.5 10^3/uL (1.5-5.0); LYMPH % 2.5 % (24.0-44.0); MEAN CORPUSCULAR HEMOGLOBIN 32.2 pg (27.0-33.0); MEAN CORPUSCULAR HGB CONC 32.9 g/dl (32.0-36.5); MEAN CORPUSCULAR VOLUME 97.7 fl (80.0-96.0); MONO # 0.6 10^3/uL (0.0-0.8); MONO % 2.7 % (0.0-5.0); NEUTROPHILS # 17.9 10^3/uL (1.5-8.5); NEUTROPHILS % 86.2 % (36.0-66.0); PLATELET COUNT, AUTOMATED 510 10^3/uL (150-450); RED BLOOD COUNT 3.11 10^6/uL (4.00-5.40); WHITE BLOOD COUNT 20.7 10^3/uL (4.0-10.0)
[2019-02-21 06:09] LABS: BLOOD UREA NITROGEN 15 MG/DL (7-18); CARBON DIOXIDE LEVEL 25 MEQ/L (21-32); CHLORIDE LEVEL 106 MEQ/L (98-107); CREATININE FOR GFR 0.92 MG/DL (0.55-1.30); GLOMERULAR FILTRATION RATE > 60.0 (>32); GLUCOSE, FASTING 53 MG/DL (70-100); SODIUM LEVEL 139 MEQ/L (136-145)
--- NOTE | 2019-02-21 06:51 | IPN ---
DATE: 02/20/2019 Mrs. Rossi continues to have fevers, no appetite. She is not hungry. She has not had any vomiting, but has had some nausea and heartburn. She had diarrhea after the bowel prep. On physical exam, elderly female in no acute distress, under her blankets due to fevers. T-max was 101.7, currently 99.1, pulse 93, respirations 16, blood pressure 118/60, O2 sat 90% on 1 liter nasal cannula. Heart normal S1-S2. No murmurs appreciated. Lungs diminished breath sounds at the bases. Abdomen soft, nontender. No hepatosplenomegaly. Extremities no clubbing, cyanosis or edema. Skin rash, diffuse, maculopapular mostly involving the abdomen and flank areas, which has increased compared to admission. LABORATORIES: White count is 21.7, hemoglobin 9.9, hematocrit 30.4, platelets 524 with 87% neutrophils, 3% lymphocytes, 2% monocytes and 4% immature granulocytes, ESR 64. Sodium 139, potassium 3.8, chloride 105, bicarb 26, BUN 16, creatinine 1.06, glucose 70, calcium 9.6, ferritin 932. Liver profile normal. Albumin 1.5. AMMY negative. Rheumatoid factor negative. Serology: Negative C. Difficile. Lyme disease pending. Urine legionnaire antigen and pneumococcal antigen negative. Blood cultures times four sets are negative. Chest x-ray done on 02/20 shows pulmonary venous congestion and a large hiatus hernia. IMPRESSION: 1. Fever of unknown origin. So far all workup has been negative. Concern is severe leukocytosis along with increasing procalcitonin which makes a bacterial infection back on the list. Her procalcitonin has increased to 0.48. There is no localizing symptom or signs. No localizing findings on imaging. The possibilities also could be tick-borne illnesses such as Lyme disease, Anaplasma, unlikely Babesia as the patient does not have pancytopenia or abnormal liver function tests. Tick-borne illnesses will be ruled out. I have ordered PCR testing and will start doxycycline 100 mg IV every 12 hours while waiting for results. 2. Hypoxia with mild fluid overload. I suspect she has some element of congestive heart failure and not pneumonia as the cause of her hypoxia. 3. Gastroesophageal reflux disease with esophagitis and hiatus hernia. Endoscopy was done today. No infectious etiology could be explained to her and her colonoscopy was pretty benign. PLAN: Start doxycycline 100 mg IV every 12 hours. Babesia and Anaplasma serology and PCR were sent. Lyme serology is pending.
[2019-02-21 07:37] VITALS: BP 126/65
[2019-02-21] MEDS: PANTOPRAZOLE 40MG INJ (PROTONIX) (C9113) IV SCH (08:50)
[2019-02-21] MEDS: guaiFENesin ER 600 MG TAB PO SCH ×2 (08:50→22:29)
[2019-02-21] MEDS: ASPIRIN 81 MG ENTERIC TAB PO SCH (08:50)
[2019-02-21] MEDS: PRAVASTATIN 20 MG TAB PO SCH (08:50)
[2019-02-21] MEDS ORDERED: FUROSEMIDE 40 MG/4 ML VIAL (J1940) IV ONE (11:00)
--- NOTE | 2019-02-21 11:16 | IPNPDOC ---
Text Note Date of Service The patient was seen on 02/21/19. NOTE SUBJECTIVE: Continues to spike fevers daily. No further diarrhea, says her heart burn is better she was able to eat a donut today which is more than what she was able to eat for the last 2 weeks. Rash present all over the trunk remains unchanged. As per nursing she desaturates at night during sleep but ok during the day. OBJECTIVE: PHYSICAL EXAMINATION: Vital signs: pls see below Generally: Laying down in bed in no acute distress, weak and tired looking. NECK: JVD negative, No thyromegaly. No cervical lymphadenopathy or thyromegaly, HEENT: Pupils are round and reactive. Extraocular muscles are intact. moist mucous membranes. Lungs are diminished bibasilar crackles otherwise clear to auscultation no wheezing on ronchi Heart: S1, S2, sinus rhythm. No murmurs, rubs or gallops. Abdomen is soft, nontender, non distended, bowel sounds normal Extremities: No cyanosis, clubbing or any pitting edema. Skin: erythematous maculopapular rash on the back and right side. NEURO: No focal neurodeficits, alert, oriented x 3. LABORATORY DATA: Reviewed. Renal ultrasound: No hydronephrosis. Left renal cyst. ASSESSMENT AND PLAN: This is an 84-year-old female who presented with generalized weakness, decreased appetite and oral intake, nausea for about 2 weeks prior to admission and was found by primary doctor to have preventricular contractions (PVCs) on EKG. Patient was transferred to [facility] for further evaluation. Pateint was admitted for generalized weakness, anorexia. CT of the head, chest, x-rays were normal. Urinalysis showed negative nitrites. Patient was noted to have mild LEI felt to be due to dehydration, low albumin, anemia , elevated WBC. Patient had a PVC workup including an echocardiogram . The day after admission patient started spiking high grade fevers with further elevation of WBC with elevated ESR. She also developed shortness of breath and started requiring oxygen. CT angio of the chest and CT of abdomen and pelvis was done. They revealed signs of fluid overload with bilateral effusions and atelectasis / infiltrates . CT abdomen showed some mesenteric edema and some fluid collection in the lower quadrant. It was felt patient may be having pneumonia so started on ceftriaxone and azithromycin after 1 dose of ceftriaxone was it was changed to Zosyn. Inspite of being on broad spectrum antibiotic coverage patient continues to have daily spiking temperatures. She has also developed watery diarrhea after antibiotics. C. diff pcr has been negative. Continues to have gastrointestinal complaints, unable to eat, still requiring oxygen. ID and GI was consulted. ID does not feel this is an infectious process more an inflammatory process. As per ID pateint does not have bacterial infection. Could still have a viral infection going on. Hypoxia mostly nocturnal will get a nocturnal oximetry SIRS/Sepsis unsure if there is any infection at all . Low probability. Could be an autoimmune process and all the signs and symptoms may related to inflammation. Autoimmune work up has been ordered. RA negative, lyme titers neg, urine legionella, strep negative On doxycycline only Pneumonia low probability in view of low procalcitonin before. Procalcitonin has been repeated which is 2.03 New CXR question about left lower lobe infiltrate. Ihave stopped the antibiotics. for now. will discuss with ID whether to restart Zosyn or not. blood cultures negative till date. urine legionella and strep pneumoniae pending. Anorexia, nausea, diarrhea, anemia Large hiatal hernia. EGD shows reflux esophagitis On PPI colonoscopy showed some polyps, diverticulosis, internal hemorrhoids. Acute hypoxic respiratory failure Grade 2 LV diastolic dysfunction on Echo CXR 02/20 not much change from before, there is some pulmonary vascular prominence may have some fluid overload. Will give a dose of lasix today. on o2 PVCs on telemetry: Nonsignificant. Patient has had no sustained ventricular tachycardia. Her magnesium and potassium are within normal limits. Echo negative.. Cardiac markers were unremarkable. Acute Renal failure resolved. Dyslipidemia: On pravastatin. Hypertension: held benazepril Failure to thrive with poor appetite: Patient is on supplemental nutrition. Funeral Pre Arrangement Counselor has been consulted. Debility: Defer to physical therapy. Patient lives alone at home and would like to remain at home. Daughter is supportive but will be unable to provide 24/7 care. Pulmonary Hypertension with mild TR: complicating care DVT prophylaxis ordered. VS,Fishbone, I+O VS, Fishbone, I+O Laboratory Tests 02/21/19 05:29 Red Blood Count 3.11 L, Mean Corpuscular Volume 97.7 H, Mean Corpuscular Hemoglobin 32.2, Mean Corpuscular Hemoglobin Concent 32.9, Red Cell Distribution Width 12.8, Neutrophils (%) (Auto) 86.2 H, Lymphocytes (%) (Auto) 2.5 L, Monocytes (%) (Auto) 2.7, Eosinophils (%) (Auto) 4.2 H, Basophils (%) (Auto) 0.4, Neutrophils # (Auto) 17.9 H, Lymphocytes # (Auto) 0.5 L, Monocytes # (Auto) 0.6, Eosinophils # (Auto) 0.9 H, Basophils # (Auto) 0.1, Calcium Level 9.0 Vital Signs Date Time Temp Pulse Resp B/P (MAP) Pulse Ox O2 Delivery O2 Flow Rate FiO2 02/21/19 07:37 97.6 92 22 126/65 (86) 94 1.0 I&O- Last 24 Hours up to 6 AM 02/21/19 06:00 Intake Total 100 ml Output Total 700 ml Balance -600 ml THAD WILEY MD Feb 21, 2019 11:16
[2019-02-21 11:21] LABS: HIV 1&2 SCREEN CENTAUR NEGATIVE (NEGATIVE)
[2019-02-21 12:21] VITALS: BP 144/73
[2019-02-21 14:00] VITALS: BP 148/81
--- NOTE | 2019-02-21 20:22 | IPN ---
DATE: 02/21/2019 Mrs. Rossi continues to have fevers, but she states her diarrhea has improved and the heartburn as well. She still has a decreased appetite. The rash is more prominent on the abdomen, more erythematous. It is nonpruritic. She denies any joint pain. No headache, neck stiffness. Se has mild shortness of breath and a nonproductive cough. PHYSICAL EXAM: She is a healthy-looking elderly female in no acute distress. Lungs: Diminished breath sounds at both bases with crackles. Heart: Normal S1, S2 with no murmurs, rubs or gallops appreciated. Abdomen: Soft, nontender. No hepatosplenomegaly. Extremities: No clubbing, cyanosis or edema. Skin: With diffuse erythematous maculopapular rash on back and abdomen, blanching, not vasculitic. Neurologic exam: Normal. Neck: No stiffness. Normal range of motion. IMPRESSION: Fever of unknown origin with rash with negative blood cultures times four, negative methicillin-resistant Staphylococcus aureus (MRSA) screen negative, negative respiratory panel. Procalcitonin elevated, somewhat concerning for bacterial infection from 0.4 to 2.03. Tick-borne illnesses have been discussed, and the patient was started on doxycycline. Lyme serology was negative. PLAN: Consult Dr. Welsh today regarding rash and FUO MTDD
[2019-02-21 22:00] VITALS: BP 119/67
[2019-02-22] MEDS: DOXYCYCLINE HYCLATE 100 MG in D5W MINI-BAG PLUS 100 ML IV SCH ×3 (00:18→23:26)
[2019-02-22 05:39] LABS: BASO # 0.1 10^3/uL (0.0-0.2); BASO % 0.4 % (0.0-1.0); EOS # 1.4 10^3/uL (0.0-0.5); EOS % 6.5 % (0.0-3.0); HEMOGLOBIN 11.1 g/dl (12.0-15.5); LYMPH # 0.7 10^3/uL (1.5-5.0); LYMPH % 3.3 % (24.0-44.0); MEAN CORPUSCULAR HEMOGLOBIN 31.6 pg (27.0-33.0); MEAN CORPUSCULAR HGB CONC 32.6 g/dl (32.0-36.5); MEAN CORPUSCULAR VOLUME 96.9 fl (80.0-96.0); MONO # 0.5 10^3/uL (0.0-0.8); MONO % 2.1 % (0.0-5.0); NEUTROPHILS # 17.9 10^3/uL (1.5-8.5); NEUTROPHILS % 82.8 % (36.0-66.0); PLATELET COUNT, AUTOMATED 580 10^3/uL (150-450); RED BLOOD COUNT 3.51 10^6/uL (4.00-5.40); WHITE BLOOD COUNT 21.6 10^3/uL (4.0-10.0)
[2019-02-22 05:58] LABS: CALCIUM LEVEL 9.8 MG/DL (8.8-10.2); CREATININE FOR GFR 1.03 MG/DL (0.55-1.30); GLOMERULAR FILTRATION RATE 54.6 (>32); POTASSIUM SERUM 3.6 MEQ/L (3.5-5.1)
[2019-02-22 06:00] VITALS: BP 132/78
[2019-02-22 06:01] LABS: MONO REFLEX EBV COMP NEGATIVE (NEGATIVE); TOTAL PROTEIN 4.5 GM/DL (6.4-8.2)
[2019-02-22] MEDS: SLF 3 ML SYR IV SCH ×3 (06:39→20:54)
[2019-02-22] MEDS ORDERED: ACETAMINOPHEN TAB 650MG DOSE (2X325MG) PO PRN (07:15)
[2019-02-22] MEDS: PRAVASTATIN 20 MG TAB PO SCH (08:17)
[2019-02-22] MEDS: PANTOPRAZOLE 40MG INJ (PROTONIX) (C9113) IV SCH (08:17)
[2019-02-22] MEDS: ASPIRIN 81 MG ENTERIC TAB PO SCH (08:17)
[2019-02-22] MEDS: guaiFENesin ER 600 MG TAB PO SCH ×2 (08:17→20:53)
--- NOTE | 2019-02-22 09:29 | CR.PDOC ---
General Date of Consultation: Feb 21, 2019 Referring Provider: Rebeca Bey MD Attending Physician: THAD WILEY MD Consultation DERMATOLOGY CONSULTATION Asked to see patient to evaluate rash that developed within the past several days of hospitalization in [facility] HISTORY OF PRESENT ILLNESS: Mrs. Rossi is a pleasant 84-year-old female who is very healthy until about 10 days prior to admission when she started developing anorexia, decreased appetite and generalized weakness. She progressively started feeling weaker and went to see her primary care provider who was concerned about her being dehydrated and having generalized weakness with poor appetite being confused at times. She did an EKG, she has frequent premature ventricular contractions (PVCs). Her labs in the [facility] emergency room (ER) had a white count of 16,000, mild hyponatremia with a sodium of 132, creatinine of 1.9 and therefore the patient was admitted for dehydration and further workup. Initially she was afebrile until the next day after admission when she starts having fevers up to 102.5. The patient had a normal chest x-ray but because she has a history of reflux and chronic cough, usually mostly after she eats she had a chest CT which showed bilateral pleural effusions, there was some concern of pneumonia and therefore she was started on broad-spectrum antibiotics. Had CT abdomen/pelvis which revealed mesenteric edema and small pocket of fluid, no other revealing elements from other imaging modalities performed. MRSA, C. diff, RVP negative. Initially she received a dose of ceftriaxone and Zithromax on 02/15. On 02/16 she received vancomycin and Zosyn and eventually received azithromycin dosing, currently off antibiotics. Fevers persist but lower temps than prior. She never had urinary symptoms even though her urinalysis had some bacteria and leukocytes. The patient denied dysuria, hematuria or flank pain. Urine culture did not grow anything. She really denies all symptoms except for gastrointestinal (GI) discomfort. Mostly her GI discomfort is nausea, she has vomited a couple times and she has no appetite. She denied having diarrhea until she came in and has been given all those antibiotics. PAST MEDICAL HISTORY: Significant for hypertension, osteoporosis, hyperlipidemia and gastroesophageal reflux disease with a hiatus hernia. PAST SURGICAL HISTORY: Bilateral cataract surgery done in 2002, cholecystectomy in 2006. REVIEW OF SYSTEMS: She complains of weakness. She has some fevers. No chills. She denies any chest pain, headache, no ear pain. She has a mild cough mostly nonproductive. No chest pain or palpitations. She has nausea and some vomiting, decreased appetite but no abdominal pain. She has had diarrhea since hospitalization. She denies any tick or mosquito bites, rashes, polydipsia or polyuria. No mouth sores, no genital sores. SOCIAL HISTORY: Illicit drug use: Nil IV drug use: Nil Other relevant social factors: Nil Former smoker Lives alone Supportive and involved family PHYSICAL EXAMINATION: VITAL SIGNS: Please see below. With fevers in past several days to 102-103 F. GENERAL APPEARANCE: WDWNWF in NAD, appears tired HEENT: EOMI, NC/AT RESPIRATORY: RRR CARDIOVASCULAR: No edema of the lower extremities ABDOMEN: Soft, not TTP EXTREMITIES/SKIN: Edematous pink to red papules and plaques with urticarial appearance with geometric cut offs back, upper arms, buttocks, flanks >> chest, abdomen (dependent areas) NEUROLOGICAL: AOx4, tired PSYCHIATRIC: Mood congruent, appropriate, pleasant LABORATORY DATA: Please see below. ASSESSMENT/PLAN: Mrs. Rossi is an 84 year old WF admitted to the hospital in the setting of fever, weakness, frequent PVCs with original concern for aspiration pneumonia treated with antibiotics including ceftriaxone (first), vancomycin/Zosyn and azithromycin who developed a rash in the past several days mostly on her back in dependent areas that is not itchy or symptomatic per patient. 1. Rash: I favor a drug reaction most likely to ceftriaxone based on the time course and the agents given. An alternative consideration would be a viral exanthem but the gravitational dependency of the reaction leads more toward extravasation of a drug agent with a local reaction in the tissue. A serum- sickness like reaction is what the urticarial appearance reminds me of and is what I favor as the type of allergic reaction that the ceftriaxone induced. I do not favor any current medication she is on as the cause of her allergic reaction. Alternative considerations would be hemophagocytic lymphohistiocytosis (with the elevated ferritin to almost 1,000 and the pro-inflammatory state) along with adult-onset Still disease (similar presentation to HLH). The rash of AOSD tends to be more evanescent and patients with HLH would have decompensated more than she has at this point in the disease process, so I do not believe these disease states to be favored. A mosquito borne illness would be possible but based on lack of exposure and lack of neuro symptoms, I do not favor such a diagnosis. - Start prednisone taper - Start triamcinolone 0.1% ointment BID to affected areas of body (not face) with rash - Consider adding ceftriaxone to allergy list - Start Zyrtec 10 mg PO daily until resolution of rash given urticarial appearance in areas - Moisturize head to toe daily Thank you for this consultation. I spent 1 hour at the patient bedside or on the floor involved in direct patient care. Please schedule patient for outpatient dermatology follow up in the 2-4 weeks after discharge from hospital by calling [phone]. Vital Signs/I&O Vital Signs Date Time Temp Pulse Resp B/P (MAP) Pulse Ox O2 Delivery O2 Flow Rate FiO2 02/22/19 06:00 98.1 108 18 132/78 (96) 89 02/21/19 07:37 1.0 I&O- Last 24 Hours up to 6 AM 02/22/19 06:00 Intake Total 760 ml Output Total 400 ml Balance 360 ml Laboratory Data Labs 24H Laboratory Tests 2 02/22/19 05:12: 02/22/19 05:20: Immature Granulocyte % (Auto) 4.9H, White Blood Count 21.6H, Red Blood Count 3.51L, Hemoglobin 11.1L, Hematocrit 34.0L, Mean Corpuscular Volume 96.9H, Mean Corpuscular Hemoglobin 31.6, Mean Corpuscular Hemoglobin Concent 32.6, Red Cell Distribution Width 12.5, Platelet Count 580H, Neutrophils (%) (Auto) 82.8H, Lymphocytes (%) (Auto) 3.3L, Monocytes (%) (Auto) 2.1, Eosinophils (%) (Auto) 6.5H, Basophils (%) (Auto) 0.4, Neutrophils # (Auto) 17.9H, Lymphocytes # (Auto) 0.7L, Monocytes # (Auto) 0.5, Eosinophils # (Auto) 1.4H, Basophils # (Auto) 0.1, Nucleated Red Blood Cells % (auto) 0.0, Anion Gap 6L, Glomerular Filtration Rate 54.6, Blood Urea Nitrogen 19H, Creatinine 1.03, Sodium Level 140, Potassium Level 3.6, Chloride Level 104, Carbon Dioxide Level 30, Calcium Level 9.8, Total Protein (PEP) 4.5L, Monoscreen NEGATIVE CBC/BMP Laboratory Tests 02/22/19 05:20 Red Blood Count 3.51 L, Mean Corpuscular Volume 96.9 H, Mean Corpuscular Hemoglobin 31.6, Mean Corpuscular Hemoglobin Concent 32.6, Red Cell Distribution Width 12.5, Neutrophils (%) (Auto) 82.8 H, Lymphocytes (%) (Auto) 3.3 L, Monocyt es (%) (Auto) 2.1, Eosinophils (%) (Auto) 6.5 H, Basophils (%) (Auto) 0.4, Neutrophils # (Auto) 17.9 H, Lymphocytes # (Auto) 0.7 L, Monocytes # (Auto) 0.5, Eosinophils # (Auto) 1.4 H, Basophils # (Auto) 0.1, Calcium Level 9.8 Microbiology Microbiology 02/16/19 Blood Culture - Final, Complete NO GROWTH AFTER 5 DAYS 02/16/19 Blood Culture - Final, Complete NO GROWTH AFTER 5 DAYS 02/16/19 MRSA Screen - Final, Complete 02/15/19 Respiratory Virus Panel (PCR) (RICARDO) - Final, Complete 02/15/19 Urine Culture - Final, Complete 02/15/19 Blood Culture - Final, Complete NO GROWTH AFTER 5 DAYS 02/15/19 Blood Culture - Final, Complete NO GROWTH AFTER 5 DAYS Allergies Coded Allergies: No Known Allergies (Unverified , 02/13/19) Home Medications Scheduled Aspirin (Aspir 81) 81 Mg Tablet.dr, 81 MG PO DAILY, (Reported) Benazepril HCl (Benazepril HCl) 40 Mg Tablet, 40 MG PO DAILY, (Reported) Calcium Carbonate/Vitamin D3 (Calcium 600-Vit D3 200 Tablet) 1 Each Tablet, 1 TAB PO DAILY, (Reported) Cholecalciferol (Vitamin D3) (Vitamin D3) 1,000 Unit Capsule, 1,000 UNIT PO DAILY, (Reported) Multivitamin (Multivitamins) 1 Each Tablet, 1 TAB PO DAILY, (Reported) [place]-3/Dha/Epa/Fish Oil (Fish Oil 1,000 mg Softgel) 1 Each Capsule, 1 CAP PO DAILY, (Reported) Pravastatin Sodium (Pravastatin Sodium) 20 Mg Tablet, 20 MG PO DAILY, (Reported) Ranitidine HCl (Ranitidine HCl) 150 Mg Tablet, 1 TAB PO DAILY, (Reported) HAYLEY YOUNG MD Feb 22, 2019 09:24
[2019-02-22] MEDS ORDERED: ISOVUE-370 76% 100ML VIAL (Q9967) As Ordered ONE (12:15)
--- NOTE | 2019-02-22 12:16 | IPNPDOC ---
Text Note Date of Service The patient was seen on 02/22/19. NOTE SUBJECTIVE: Continues to spike fevers daily. No further diarrhea, says her heart burn is better however still does not have any appetite. . Rash present all over the trunk remains unchanged. As per nursing she desaturates at night during sleep but ok during the day. OBJECTIVE: PHYSICAL EXAMINATION: Vital signs: pls see below Generally: Laying down in bed in no acute distress, weak and tired looking. NECK: JVD negative, No thyromegaly. No cervical lymphadenopathy or th yromegaly, HEENT: Pupils are round and reactive. Extraocular muscles are intact. moist mucous membranes. Lungs are diminished bibasilar crackles otherwise clear to auscultation no wheezing on ronchi Heart: S1, S2, sinus rhythm. No murmurs, rubs or gallops. Abdomen is soft, nontender, non distended, bowel sounds normal Extremities: No cyanosis, clubbing or any pitting edema. Skin: erythematous maculopapular rash on the back and right side. NEURO: No focal neurodeficits, alert, oriented x 3. LABORATORY DATA: Reviewed. Renal ultrasound: No hydronephrosis. Left renal cyst. ASSESSMENT AND PLAN: This is an 84-year-old female who presented with generalized weakness, decreased appetite and oral intake, nausea for about 2 weeks prior to admission and was found by primary doctor to have preventricular contractions (PVCs) on EKG. Patient was transferred to [facility] for further evaluation. Patient was admitted for generalized weakness, anorexia. CT of the head, chest, x-rays were normal. Urinalysis showed negative nitrites. Patient was noted to have mild LEI felt to be due to dehydration, low albumin, anemia , elevated WBC. Patient had a PVC workup including an echocardiogram . The day after admission patient started spiking high grade fevers with further elevation of WBC with elevated ESR. She also developed shortness of breath and started requiring oxygen. CT angio of the chest and CT of abdomen and pelvis was done. They revealed signs of fluid overload with bilateral effusions and atelectasis / infiltrates . CT abdomen showed some mesenteric edema and some fluid collection in the lower quadrant. It was felt patient may be having pneumonia so started on ceftriaxone and azithromycin after 1 dose of ceftriaxone was it was changed to Zosyn. Inspite of being on broad spectrum antibiotic coverage patient continues to have daily spiking temperatu res. She has also developed watery diarrhea after antibiotics. C. diff pcr has been negative. Continues to have gastrointestinal complaints, unable to eat, still requiring oxygen. ID and GI was consulted. ID does not feel this is an infectious process more an inflammatory process. As per ID pateint does not have bacterial infection. Could still have a viral infection going on. FUO with leucocytosis and rash infectious work up up is mostly negative including all cultures, Lyme, Legionella, C diff, HIV, monoscreen, pending TB gold test Rheumatological work up RA and AMMY are negative. CT chest with contrast and abd and pelvis with contrast negative for any lymph nodes. will get CT head with contrast Peripheral smear Ig A G and M will get peripheral flow cytometry adn JAK2 SPEP in progress Rash seen by derm possibly aishwarya;g rash may be ceftriaxone or viral exanthem or hemophagocytic lymphohistiocytosis (with the elevated ferritin to almost 1,000 and the pro-inflammatory state) along with adult-onset Still disease (similar presentation to HLH). prednisone taper, triamcinolone and zyrtec , moisturizing lotion. Hypoxia mostly nocturnal will get a nocturnal oximetry Anorexia, nausea, diarrhea, anemia Large hiatal hernia. EGD shows reflux esophagitis On PPI colonoscopy showed some polyps, diverticulosis, internal hemorrhoids. Grade 2 LV diastolic dysfunction on Echo CXR 02/20 not much change from before, there is some pulmonary vascular prominence may have some fluid overload. Will give a dose of lasix today. on o2 PVCs on telemetry: Nonsignificant. Patient has had no sustained ventricular tachycardia. Her magnesium and potassium are within normal limits. Echo negative.. Cardiac markers were unremarkable. Acute Renal failure resolved. Dyslipidemia: On pravastatin. Hypertension: held benazepril Failure to thrive with poor appetite: Patient is on supplemental nutrition. Senior Developer has been consulted. Debility: Defer to physical therapy. Patient lives alone at home and would like to remain at home. Daughter is supportive but will be unable to provide 24/7 care. Pulmonary Hypertension with mild TR: complicating care DVT prophylaxis ordered. VS,Fishbone, I+O VS, Fishbone, I+O Laboratory Tests 02/22/19 05:20 Red Blood Count 3.51 L, Mean Corpuscular Volume 96.9 H, Mean Corpuscular Hemoglobin 31.6, Mean Corpuscular Hemoglobin Concent 32.6, Red Cell Distribution Width 12.5, Neutrophils (%) (Auto) 82.8 H, Lymphocytes (%) (Auto) 3.3 L, Monocytes (%) (Auto) 2.1, Eosinophils (%) (Auto) 6.5 H, Basophils (%) (Auto) 0.4, Neutrophils # (Auto) 17.9 H, Lymphocytes # (Auto) 0.7 L, Monocytes # (Auto) 0.5, Eosinophils # (Auto) 1.4 H, Basophils # (Auto) 0.1, Calcium Level 9.8 Vital Signs Date Time Temp Pulse Resp B/P (MAP) Pulse Ox O2 Delivery O2 Flow Rate FiO2 02/22/19 06:00 98.1 108 18 132/78 (96) 89 02/21/19 07:37 1.0 I&O- Last 24 Hours up to 6 AM 02/22/19 06:00 Intake Total 760 ml Output Total 400 ml Balance 360 ml THAD WILEY MD Feb 22, 2019 12:16
[2019-02-22] MEDS: predniSONE 20 MG TAB PO SCH (12:18)
[2019-02-22] MEDS: CETIRIZINE (ZyrTEC) 10 MG TAB PO SCH (12:18)
[2019-02-22 14:00] VITALS: BP 130/72
[2019-02-22] MEDS: TRIAMCINOLONE ACET 0.1% OINTMENT 15 GM EXT SCH (20:53)
[2019-02-22 21:58] LABS: IMMUNOGLOBULIN G 536 MG/DL (681-1648); IMMUNOGLOBULIN M 74.4 MG/DL (40-230)
[2019-02-22 22:00] VITALS: BP 130/68
[2019-02-23] MEDS: SLF 3 ML SYR IV SCH ×3 (05:16→20:57)
[2019-02-23 06:00] VITALS: BP 111/76
[2019-02-23 06:56] LABS: HEMATOCRIT 29.2 % (36.0-47.0); HEMOGLOBIN 9.6 g/dl (12.0-15.5); MEAN CORPUSCULAR HEMOGLOBIN 31.6 pg (27.0-33.0); MEAN CORPUSCULAR HGB CONC 32.9 g/dl (32.0-36.5); MEAN CORPUSCULAR VOLUME 96.1 fl (80.0-96.0); PLATELET COUNT, AUTOMATED 506 10^3/uL (150-450); RED BLOOD COUNT 3.04 10^6/uL (4.00-5.40); WHITE BLOOD COUNT 19.2 10^3/uL (4.0-10.0)
--- NOTE | 2019-02-23 07:12 | REP ---
CT BRAIN WITHOUT AND WITH CONTRAST: 02/22/2019. Clinical history: Fever of unknown etiology. No prior study. Technique: 75 ml Isovue 370 bolus with before and after contrast imaging. Bone windows also provided. No pertinent prior study. Findings: The lateral ventricles midline, symmetric and the without dilatation or displacement. Third and fourth ventricles are also proportionate to the diffuse moderately severe cerebral atrophy. Heterogeneous low attenuation white matter change seen diffusely in the cerebral hemispheres in a fairly symmetric fashion. Some low density in the basal ganglia may reflect chronic white matter changes well. The cortical stripe shows diffuse atrophy. There is no vascular territory infarct, intracranial hemorrhage, mass or mass effect. No extra-axial fluid collection noted. Brainstem unremarkable. Cerebellum shows diffuse atrophy. Basal cisterns are intact. Mastoids and visualized sinuses were clear. There is atherosclerotic calcification of the carotid siphons. Skull base and calvarium are without fracture or focal lesion. After contrast administration, there was no evidence of an enhancing mass, abnormal meningeal enhancement or gyriform enhancement. No vascular lesion is noted. Impression: 1. Ventriculomegaly with proportionate moderately severe atrophy, all age appropriate. Cerebellar atrophy also noted. 2. Chronic small vessel white matter ischemic changes of aging. 3. The basal ganglia show chronic changes as well. No abnormal enhancement to suggest infection, infarct or other acute finding. 4. The skull base, calvarium, mastoids and visible sinuses clear. Electronically Signed by Logan Lazaro MD 02/23/2019 09:14 A
[2019-02-23 07:13] LABS: BLOOD UREA NITROGEN 20 MG/DL (7-18); CALCIUM LEVEL 9.5 MG/DL (8.8-10.2); CARBON DIOXIDE LEVEL 28 MEQ/L (21-32); CHLORIDE LEVEL 107 MEQ/L (98-107); CREATININE FOR GFR 0.92 MG/DL (0.55-1.30); GLOMERULAR FILTRATION RATE > 60.0 (>32); GLUCOSE, FASTING 173 MG/DL (70-100); POTASSIUM SERUM 4.3 MEQ/L (3.5-5.1); SODIUM LEVEL 142 MEQ/L (136-145)
[2019-02-23 07:19] LABS: EOSINOPHILS 2 % (0-3); LYMPHOCYTES 4 % (16-44); METAMYELOCYTES 1 % (0-0); MONOCYTES 2 % (0-5); NEUTROPHILS 91 % (28-66)
[2019-02-23 07:20] LABS: PLATELET ESTIMATE INCREASED (NORMAL)
[2019-02-23 07:21] LABS: TOXIC GRANULATION 1+
[2019-02-23] MEDS: guaiFENesin ER 600 MG TAB PO SCH ×2 (08:43→20:57)
[2019-02-23] MEDS: TRIAMCINOLONE ACET 0.1% OINTMENT 15 GM EXT SCH ×2 (08:43→20:57)
[2019-02-23] MEDS: ASPIRIN 81 MG ENTERIC TAB PO SCH (08:43)
[2019-02-23] MEDS: predniSONE 20 MG TAB PO SCH (08:43)
[2019-02-23] MEDS: CETIRIZINE (ZyrTEC) 10 MG TAB PO SCH (08:43)
[2019-02-23] MEDS: PANTOPRAZOLE 40MG INJ (PROTONIX) (C9113) IV SCH (08:43)
[2019-02-23] MEDS: PRAVASTATIN 20 MG TAB PO SCH (08:43)
--- NOTE | 2019-02-23 12:17 | IPNPDOC ---
Text Note Date of Service The patient was seen on 02/23/19. NOTE SUBJECTIVE: Did not have any fever spike in the last 24 hours. Patient is off oxygen now, No desaturations at night. did have 2 loose bowel movements yesterday, continues to have poor appetite. OBJECTIVE: PHYSICAL EXAMINATION: Vital signs: pls see below Generally: Laying down in bed in no acute distress, weak and tired looking. NECK: JVD negative, No thyromegaly. No cervical lymphadenopathy or thyromegaly, HEENT: Pupils are round and reactive. Extraocular muscles are intact. moist mucous membranes. Lungs are diminished bibasilar crackles otherwise clear to auscultation no wheezing on ronchi Heart: S1, S2, sinus rhythm. No murmurs, rubs or gallops. Abdomen is soft, nontender, non distended, bowel sounds normal Extremities: No cyanosis, clubbing or any pitting edema. Skin: erythematous maculopapular rash on the back and right side. NEURO: No focal neurodeficits, alert, oriented x 3. LABORATORY DATA: Reviewed. Renal ultrasound: No hydronephrosis. Left renal cyst. ASSESSMENT AND PLAN: This is an 84-year-old female who presented with generalized weakness, decreased appetite and oral intake, nausea for about 2 weeks prior to admission and was found by primary doctor to have preventricular contractions (PVCs) on EKG. Patient was transferred to [facility] for further evaluation. Patient was admitted for generalized weakness, anorexia. CT of the head, chest, x-rays were normal. Urinalysis showed negative nitrites. Patient was noted to have mild LEI felt to be due to dehydration, low albumin, anemia , elevated WBC. Patient had a PVC workup including an echocardiogram . The day after admission patient started spiking high grade fevers with further elevation of WBC with elevated ESR. She also developed shortness of breath and started requiring oxygen. CT angio of the chest and CT of abdomen and pelvis was done. They revealed signs of fluid overload with bilateral effusions and atelectasis / infiltrates . CT abdomen showed some mesenteric edema and some fluid collection in the lower quadrant. It was felt patient may be having pneumonia so started on ceftriaxone and azithromycin after 1 dose of ceftriaxone was it was changed to Zosyn. Inspite of being on broad spectrum antibiotic coverage patient continues to have daily spiking temperatures. She has also developed watery diarrhea after antibiotics. C. diff pcr has been negative. Continues to have gastrointestinal complaints, unable to eat, still requiring oxygen. ID and GI was consulted. ID does not feel this is an infectious process more an inflammatory process. As per ID pateint does not have bacterial infection. Could still have a viral infection going on. FUO with leucocytosis and rash infectious work up is mostly negative including all cultures, Lyme, Legionella, C diff, HIV, monoscreen, pending TB gold test Rheumatological work up RA and AMMY are negative. CT chest with contrast and abd and pelvis with contrast negative for any lymph nodes. CT head with contrast negative to me. I discussed the patient with Dr Gonzales regarding her FUO and ordered the following. Peripheral smear Ig A G and M, IgG is mildly depleted. ordered peripheral flow cytometry and JAK2, peripheral smear. SPEP in progress Rash seen by derm possibly drug rash may be allergic to ceftriaxone or viral exanthem or hemophagocytic lymphohistiocytosis (with the elevated ferritin to almost 1,000 and the pro-inflammatory state) or adult-onset Still disease (similar presentation to HLH). prednisone taper, triamcinolone and zyrtec , moisturizing lotion. Hypoxia mostly nocturnal nocturnal oximetry Anorexia, nausea, diarrhea, anemia Large hiatal hernia. EGD shows reflux esophagitis On PPI colonoscopy showed some polyps, diverticulosis, internal hemorrhoids. Grade 2 LV diastolic dysfunction on Echo CXR 02/20 not much change from before, there is some pulmonary vascular prominence may have some fluid overload. Will give a dose of lasix today. on o2 PVCs on telemetry: Nonsignificant. Patient has had no sustained ventricular tachycardia. Her magnesium and potassium are within normal limits. Echo negative.. Cardiac markers were unremarkable. Acute Renal failure resolved. Dyslipidemia: On pravastatin. Hypertension: held benazepril Failure to thrive with poor appetite: Patient is on supplemental nutrition. Skating Rink Manager has been consulted. Debility: Defer to physical therapy. Patient lives alone at home and would like to remain at home. Daughter is supportive but will be unable to provide 24/7 care. Pulmonary Hypertension with mild TR: complicating care DVT prophylaxis ordered. VS,Fishbone, I+O VS, Fishbone, I+O Vital Signs Date Time Temp Pulse Resp B/P (MAP) Pulse Ox O2 Delivery O2 Flow Rate FiO2 02/22/19 22:00 98.6 78 19 130/68 (88) 90 02/21/19 07:37 1.0 I&O- Last 24 Hours up to 6 AM 02/23/19 06:00 Intake Total 480 ml Output Total 600 ml Balance -120 ml THAD WLIEY MD Feb 23, 2019 06:33
[2019-02-23] MEDS: DOXYCYCLINE HYCLATE 100 MG in D5W MINI-BAG PLUS 100 ML IV SCH ×2 (12:57→23:12)
[2019-02-23 14:00] VITALS: BP 120/68
[2019-02-23 21:47] LABS: URINE TOTAL PROTEIN 34.9 MG/DL (0-12)
[2019-02-23 22:00] VITALS: BP 127/67
[2019-02-24] MEDS: SLF 3 ML SYR IV SCH ×3 (05:06→19:52)
[2019-02-24 06:00] VITALS: BP 137/62
[2019-02-24 06:20] LABS: HEMATOCRIT 28.3 % (36.0-47.0); HEMOGLOBIN 9.5 g/dl (12.0-15.5); MEAN CORPUSCULAR HEMOGLOBIN 32.3 pg (27.0-33.0); MEAN CORPUSCULAR HGB CONC 33.6 g/dl (32.0-36.5); MEAN CORPUSCULAR VOLUME 96.3 fl (80.0-96.0); PLATELET COUNT, AUTOMATED 521 10^3/uL (150-450); RED BLOOD COUNT 2.94 10^6/uL (4.00-5.40); WHITE BLOOD COUNT 17.9 10^3/uL (4.0-10.0)
[2019-02-24 06:48] LABS: CALCIUM LEVEL 9.2 MG/DL (8.8-10.2); CREATININE FOR GFR 0.97 MG/DL (0.55-1.30); GLOMERULAR FILTRATION RATE 58.5 (>32); POTASSIUM SERUM 4.2 MEQ/L (3.5-5.1)
[2019-02-24 07:02] LABS: EOSINOPHILS 2 % (0-3); LYMPHOCYTES 5 % (16-44); METAMYELOCYTES 2 % (0-0); MONOCYTES 2 % (0-5); NEUTROPHILS 87 % (28-66)
[2019-02-24 07:03] LABS: ANISOCYTOSIS 1+; PLATELET ESTIMATE INCREASED (NORMAL); POLYCHROMASIA 1+
[2019-02-24] MEDS: PANTOPRAZOLE 40MG INJ (PROTONIX) (C9113) IV SCH (09:50)
[2019-02-24] MEDS: ASPIRIN 81 MG ENTERIC TAB PO SCH (09:51)
[2019-02-24] MEDS: guaiFENesin ER 600 MG TAB PO SCH ×2 (09:51→19:51)
[2019-02-24] MEDS: CETIRIZINE (ZyrTEC) 10 MG TAB PO SCH (09:51)
[2019-02-24] MEDS: predniSONE 20 MG TAB PO SCH (09:51)
[2019-02-24] MEDS: PRAVASTATIN 20 MG TAB PO SCH (09:52)
[2019-02-24] MEDS: TRIAMCINOLONE ACET 0.1% OINTMENT 15 GM EXT SCH ×2 (09:52→19:52)
--- NOTE | 2019-02-24 11:59 | IPNPDOC ---
Text Note Date of Service The patient was seen on 02/24/19. NOTE SUBJECTIVE: Did not have any fever spike in the last 48 hours. Patient is off oxygen now, No desaturations at night. Appetite slight improvement. Smiling today wanting to go home. OBJECTIVE: PHYSICAL EXAMINATION: Vital signs: pls see below Generally: Laying down in bed in no acute distress, weak and tired looking. NECK: JVD negative, No thyromegaly. No cervical lymphadenopathy or thyromegaly, HEENT: Pupils are round and reactive. Extraocular muscles are intact. moist mucous membranes. Lungs are diminished bibasilar crackles otherwise clear to auscultation no wheez ing on ronchi Heart: S1, S2, sinus rhythm. No murmurs, rubs or gallops. Abdomen is soft, nontender, non distended, bowel sounds normal Extremities: No cyanosis, clubbing , 1+ pitting edema bilaterally Skin: erythematous maculopapular rash on the back and right side seems to be improving. NEURO: No focal neurodeficits, alert, oriented x 3. LABORATORY DATA: Reviewed. Renal ultrasound: No hydronephrosis. Left renal cyst. ASSESSMENT AND PLAN: This is an 84-year-old female who presented with generalized weakness, decreased appetite and oral intake, nausea for about 2 weeks prior to admission and was found by primary doctor to have preventricular contractions (PVCs) on EKG. Patient was transferred to [facility] for further evaluation. Patient was admitted for generalized weakness, anorexia. CT of the head, chest, x-rays were normal. Urinalysis showed negative nitrites. Patient was noted to have mild LEI felt to be due to dehydration, low albumin, anemia , elevated WBC. Patient had a PVC workup including an echocardiogram . The day after admission patient started spiking high grade fevers with further elevation of WBC with elevated ESR. She also developed sh ortness of breath and started requiring oxygen. CT angio of the chest and CT of abdomen and pelvis was done. They revealed signs of fluid overload with bilateral effusions and atelectasis / infiltrates . CT abdomen showed some mesenteric edema and some fluid collection in the lower quadrant. It was felt patient may be having pneumonia so started on ceftriaxone and azithromycin after 1 dose of ceftriaxone was it was changed to Zosyn. Inspite of being on broad spectrum antibiotic coverage patient continues to have daily spiking temperatures. She has also developed watery diarrhea after antibiotics. C. diff pcr has been negative. Continues to have gastrointestinal complaints, unable to eat, still requiring oxygen. ID and GI was consulted. ID does not feel this is an infectious process more an inflammatory process. As per ID pateint does not have bacterial infection. Could still have a viral infection going on. FUO with leucocytosis and rash Most probably allergic reaction to ceftriaxone. Other causes are being worked up. infectious work up is mostly negative including all cultures, Lyme, Legionella, C diff, HIV, monoscreen, pending TB gold test Rheumatological work up RA and AMMY are negative. CT chest with contrast and abd and pelvis with contrast negative for any lymph nodes. CT head with contrast negative I discussed the patient with Dr Gonzales regarding her FUO and ordered the following. Peripheral smear IgA G and M, IgG is mildly depleted. ordered peripheral flow cytometry and JAK2, peripheral smear. SPEP in progress Rash seen by derm possibly drug rash may be allergic to ceftriaxone or viral exanthem or hemophagocytic lymphohistiocytosis (with the elevated ferritin to almost 1,000 and the pro-inflammatory state) or adult-onset Still disease (similar presentation to [facility]). prednisone taper 40 - 30- 20-10 each for 3 days. triamcinolone and zyrtec , moisturizing lotion. Hypoxia resolved. Anorexia, nausea, diarrhea, anemia Due to reflux esophagitis. Large hiatal hernia. EGD shows reflux esophagitis On PPI continue for 3 months as per GI. colonoscopy showed some polyps, diverticulosis, internal hemorrhoids. Grade 2 LV diastolic dysfunction on Echo CXR 02/20 not much change from before, there is some pulmonary vascular prominence has minor pedal swelling did receive 1 dose of lasix. PVCs on telemetry: Nonsignificant. Patient has had no sustained ventricular tachycardia. Her magnesium and potassium are within normal limits. Echo negative.. Cardiac markers were unremarkable. Acute Renal failure resolved. Dyslipidemia: On pravastatin. Hypertension: held benazepril Failure to thrive with poor appetite: Patient is on supplemental nutrition. 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 Pulmonary Hypertension with mild TR: complicating care DVT prophylaxis ordered. Dispo: Medically if patient remains afebrile foe another 24 hours and WBC shows progressive down trending then may be discharged in next 24 hours. Patient lives alone at home and would like to remain at home. Daughter is supportive but will be unable to provide 18/12 care. As per PT may be able to go home with siervices soon with added family support but not yet cleared for discharge. VS,Fishbone, I+O VS, Fishbone, I+O Laboratory Tests 02/24/19 06:05 Red Blood Count 2.94 L, Mean Corpuscular Volume 96.3 H, Mean Corpuscular Hemoglobin 32.3, Mean Corpuscular Hemoglobin Concent 33.6, Red Cell Distribution Width 12.3, Calcium Level 9.2 Vital Signs Date Time Temp Pulse Resp B/P (MAP) Pulse Ox O2 Delivery O2 Flow Rate FiO2 02/24/19 06:00 98.2 81 16 137/62 (87) 97 02/21/19 07:37 1.0 I&O- Last 24 Hours up to 6 AM 02/24/19 06:00 Intake Total 1878 ml Output Total 900 ml Balance 978 ml THAD WILEY MD Feb 24, 2019 11:59
[2019-02-24] MEDS: DOXYCYCLINE HYCLATE 100 MG in D5W MINI-BAG PLUS 100 ML IV SCH (12:03)
[2019-02-24 14:00] VITALS: BP 140/75
--- NOTE | 2019-02-24 18:34 | IPN ---
DATE: 02/24/2019 Mrs. Rossi seems to be doing better. She states her appetite is still not great, but she ate a good breakfast this morning. She is going to try to work on her dinner. She has not had a fever since prednisone was started. Her last temperature was on 02/21/2019 of 102.1. Today, temperature is 98.7, pulse 80, respirations 20, blood pressure 140/75, oxygen saturation (O2 sat) 92% to 97% on room air. Heart: Normal S1, S2. No murmurs. Lungs: A few crackles at the bases and diminished. Abdomen is soft, nontender. No hepatosplenomegaly. Extremities: No clubbing, cyanosis or edema. She has a bruise on her left anterior rose. Skin rash is markedly decreased. Faint erythema on the abdomen. No new lesions. MEDICATIONS: - IV doxycycline day #4 - prednisone 40 mg taper LABORATORY DATA: White count is 17.9, hemoglobin 9.5, hematocrit 28.3, platelets 529, 87% neutrophils, 5% lymphocytes, 2% monocytes, 2% eosinophils, 2% metamyelocytes. Sodium 143, potassium 4.2, chloride 108, bicarbonate 28, BUN 21, creatinine 0.97, glucose 135, calcium 9.2. Immunoglobulin level: IgG 536, IgA 230, IgM 74. Rheumatoid factor, AMMY negative, celiac workup negative, Anaplasma, Babesia CMV, EBV and QuantiFERON Gold are still pending. IMPRESSION: 1. Fever of unknown origin. Workup so far has been negative. Patient currently on IV doxycycline, waiting for Anaplasma titers. If negative, please discontinue doxycycline. Lyme serology was negative. 2. Rash, possibly antibiotic related after she started Rocephin versus Still's disease or other autoimmune etiology. Patient on prednisone taper, doing much better. 3. Anorexia with hiatus hernia and esophagitis. Patient encouraged to eat smaller meals more frequently and currently on pantoprazole 40 mg IV every 24 hours. Pathology showed no Helicobacter organisms, mild chronic gastritis and ulcerative esophagitis. Colonoscopy was negative except for a sessile tubular adenoma of the ascending colon. PLAN: Continue prednisone taper. The patient to follow up with Dr. Welsh in the office in a couple weeks. Discontinue doxycycline if Anaplasma is negative.
[2019-02-24 22:00] VITALS: BP 152/82
[2019-02-25] MEDS: DOXYCYCLINE HYCLATE 100 MG in D5W MINI-BAG PLUS 100 ML IV SCH ×2 (00:25→11:00)
[2019-02-25] MEDS: SLF 3 ML SYR IV SCH (04:59)
[2019-02-25 06:00] VITALS: BP 148/72
[2019-02-25 06:44] LABS: HEMATOCRIT 29.8 % (36.0-47.0); HEMOGLOBIN 9.8 g/dl (12.0-15.5); MEAN CORPUSCULAR HEMOGLOBIN 31.7 pg (27.0-33.0); MEAN CORPUSCULAR HGB CONC 32.9 g/dl (32.0-36.5); MEAN CORPUSCULAR VOLUME 96.4 fl (80.0-96.0); PLATELET COUNT, AUTOMATED 538 10^3/uL (150-450); RED BLOOD COUNT 3.09 10^6/uL (4.00-5.40); WHITE BLOOD COUNT 17.4 10^3/uL (4.0-10.0)
[2019-02-25 07:04] LABS: C REACTIVE PROTEIN QUANTITATIV 4.86 MG/DL (0.00-0.30); CALCIUM LEVEL 9.2 MG/DL (8.8-10.2); CREATININE FOR GFR 0.96 MG/DL (0.55-1.30); GLOMERULAR FILTRATION RATE 59.2 (>32); POTASSIUM SERUM 4.1 MEQ/L (3.5-5.1)
[2019-02-25 07:05] LABS: JAK2 MUTATIONS FOR PATH SENDOU See Pathology Report
[2019-02-25 07:07] LABS: EOSINOPHILS 3 % (0-3); LYMPHOCYTES 9 % (16-44); METAMYELOCYTES 1 % (0-0); MONOCYTES 4 % (0-5); MYELOCYTES 2 % (0-0); NEUTROPHILS 79 % (28-66)
[2019-02-25 07:09] LABS: PLATELET ESTIMATE INCREASED (NORMAL)
[2019-02-25] MEDS: guaiFENesin ER 600 MG TAB PO SCH (09:00)
[2019-02-25] MEDS: PANTOPRAZOLE 40MG INJ (PROTONIX) (C9113) IV SCH (09:01)
[2019-02-25] MEDS: TRIAMCINOLONE ACET 0.1% OINTMENT 15 GM EXT SCH (09:01)
[2019-02-25] MEDS: predniSONE 20 MG TAB PO SCH (09:02)
[2019-02-25] MEDS: CETIRIZINE (ZyrTEC) 10 MG TAB PO SCH (09:02)
[2019-02-25] MEDS: PRAVASTATIN 20 MG TAB PO SCH (09:02)
[2019-02-25] MEDS: ASPIRIN 81 MG ENTERIC TAB PO SCH (09:02)
[2019-02-25 09:44] LABS: ALPHA-1-GLOBULINS 0.59 GM/DL (0.17-0.41); ALPHA-2-GLOBULINS 0.94 GM/DL (0.42-0.99); ALPHA-2-GLOBULINS % 20.8 % (7.1-11.8); BETA-1-GLOBULINS 0.31 GM/DL (0.28-0.60); BETA-1-GLOBULINS % 6.8 % (4.7-7.2); BETA-2-GLOBULINS 0.36 GM/DL (0.19-0.55); BETA-2-GLOBULINS % 7.9 % (3.2-6.5); GAMMA GLOBULIN % 11.5 % (11.1-18.8); GAMMA GLOBULINS 0.52 GM/DL (0.65-1.58)
[2019-02-25] MEDS ORDERED: CETI10TA PO (10:20)
[2019-02-25] MEDS ORDERED: PRED10TA2 PO ×2 (10:20→10:25)
[2019-02-25] MEDS ORDERED: TRIA1OI EXT ×2 (10:20→10:23)
[2019-02-25] MEDS ORDERED: PROT1TAB2 PO ×2 (10:20→10:25)
[2019-02-25] MEDS ORDERED: DOXY-350 PO ×2 (10:20→10:25)
[2019-02-25 15:04] LABS: ERYTHROCYTE SEDIMENTATION RATE 60 mm/hr (0-30)
--- NOTE | 2019-02-25 15:53 | DSES ---
DATE OF ADMISSION: 02/13/2019 DATE OF DISCHARGE: 02/25/2019 CONSULTANTS: Dr. Cleveland Garcia, child welfare specialist. Dr. Rebeca Bey, infectious disease specialist. Dr. Welsh, paint roller cover machine setter. PRIMARY DISCHARGE DIAGNOSES: 1. Fever of unknown origin. 2. Drug rash due to ceftriaxone. 3. Esophagitis, mild chronic gastritis. 4. Hiatal hernia. 5. Internal hemorrhoids. 6. Sessile polyp in the ascending colon. 7. Premature ventricular complexes. 8. Failure to thrive. 9. Decreased oral intake. 10. Renal failure. 11. Dehydration with hypernatremia. 12. Debility. 13. Grade 2 left ventricular diastolic dysfunction. 14. Presumed pneumonia. 15. Acute hypoxic respiratory failure with fluid overload. 16. Pulmonary hypertension with mild tricuspid regurgitation. 17. Dyslipidemia. 18. Hypertension. DISCHARGE MEDICATIONS: - doxycycline 100 mg by mouth twice a day - Protonix 40 mg daily - prednisone taper - triamcinolone twice a day for 5 days - aspirin 81 mg daily - benazepril 40 mg daily - calcium one tablet daily - vitamin D 1000 units daily - multivitamin one tablet daily - Industry 3 one tablet daily - Pravastatin 20 mg daily - ranitidine one tablet daily HOSPITAL COURSE: This is an 84-year-old female who presented to the emergency room with complaints of poor appetite, decreased weakness and fatigue, found to have premature ventricular contractions (PVCs) on EKG and send to [facility] for further evaluation. The patient's magnesium and potassium were within normal limits. She was optimized for a potassium greater than 4 and magnesium greater than 2. Echocardiogram showed grade II left ventricular diastolic dysfunction. Cardiac markers were negative. The patient continued to complain of some shortness of breath and was found to be hypoxic, saturating 79% on 02/14/2019 on room air. Chest x-ray showed bilateral infiltrates. BNP was elevated. Bilateral infiltrates, left lower infiltrate on the left hemidiaphragm and density in the left cardiac region. BNP was 2014. The patient's creatinine was 1.2, she was diuresed with IV Lasix times one dose with output of 1 liter, still remained positive balance. The patient then had a fever of 102.9 on 02/14/2019. She was given ceftriaxone, azithromycin for presumed left lower lobe pneumonia with persistent fever of 102.8 and 102.7 on 02/16/2019. It was 101.9 again on 02/16/2019. Respiratory panel was negative. Blood culture was negative. Urine culture was negative. The patient was changed to vancomycin and Zosyn due to elevated white count from admission of 14 to 27,000 on 02/18/2019. CT of the chest was performed and she continued to show bilateral infiltrates at the bases with small bilateral effusions with moderate hiatal hernia. Due to acute kidney injury, further diuresis was not performed, and the patient was evaluated by infectious disease specialist, Dr. Rebeca Bey. Procalcitonin was elevated from 0.4 to 2.03. Tick borne illnesses were discussed with her family. The patient's vancomycin and Zosyn were discontinued and she was placed on doxycycline. Lyme serology was negative. The patient then developed a rash, thought to be secondary to ceftriaxone. The patient was given triamcinolone and prednisone tapering. Zyrtec was given to resolve the rash and was moisturized from head to toe with resolution. Serologies were sent, including negative monoscreen, urine strep antibody, urine strep pneumonia was negative. Urine Legionella was negative. Clostridium (C.) difficile was negative. Methicillin resistant Staphylococcus aureus (MRSA) was negative. HIV was negative. Lyme was negative. Babesia and Anaplasma were pending. Larry-Guillory virus (EBV) PCR pending. Immunoglobulins showed low IgG but normal IgA and IgM levels. Rheumatoid factor was negative. AMMY was negative. Tissue transglutaminase were less than 2. IgG was 1, IgA was 4. Two sets of blood cultures showed no growth. Peripheral smear on 02/24/2019 showed no definite blasts seen, flow cytometry and JAK2 studies were submitted to [facility], results are to follow under separate report. Electrophoresis was pending. The patient was anxious to be discharged to home. She did undergo esophagogastroduodenoscopy (EGD) and colonoscopy due to persistent difficulty eating and poor appetite. She was found to have chronic gastritis, esophagitis and hiatal hernia, for which she was given Protonix daily. The patient passed home safety evaluation and was subsequently discharged home with followup with Dr. Bey regarding results of Anaplasma. LABORATORIES ON DISCHARGE: White count 17.4, hemoglobin 9.8, hematocrit 29, platelet count 538. Procalcitonin was 2.03. Sodium 144, potassium 4.1, chloride 108, bicarbonate 28, BUN 22, creatinine 0.96, glucose of 108, AMMY negative. IgG low at 536, IgA 230, IgM 74.4. Serology: Urine strep pneumonia antigen negative. Urine Legionella antigen negative. MRSA is negative. HIV is negative. QuantiFERON test is pending. Anaplasma pending. Babesia pending. Lyme disease negative. CMV DNA PCR pending. C difficile negative. IMAGING STUDIES: Renal ultrasound on 02/13/2019 showed no hydronephrosis, left renal cyst. CT of the chest on 02/15/[address] evidence of PEE, small bilateral effusions with bibasilar atelectasis, infiltrate, moderate hiatal hernia. CT of the abdomen and pelvis on 02/16/2019 showed bibasilar infiltrates and effusions in the visualized lung. Lung bases are unchanged since CT of the chest on 02/15/2019. Nonspecific mesenteric edema with mild free fluid in the right lower quadrant and pelvis. No free air. No definite bowel wall thickening. Normal appendix. Repeat chest x-ray on 02/20/2019 showed hiatal hernia, pulmonary vascular cephalization. CT of the head on 02/22/2019 showed ventriculomegaly with moderate severe atrophy, all age appropriate. Cerebellar atrophy noted. Chronic small vessel white matter ischemic changes of aging. Basal ganglia showed chronic changes. No abnormal enhancements to suggest infection, infarct or any other acute findings. Skull base, mastoids visible and sinuses are all clear. MTDD
[2019-02-26 11:48] LABS: BABESIA MICROTI PCR Negative (Negative)
[2019-02-27 00:09] LABS: CMV QUANT DNA PCR, URINE Negative copies/mL (Negative)
[2019-02-27 12:48] LABS: UPEP INTERPRETATION NO M-SPIKE NOTED; URINE VOLUME RANDOM ML
== END 2019-02-25 12:40 | disposition home or self-care (01) | DRG 308 ==
LOC: M MSPAV 02-13 00:45 → OBSVTOIN 02-13 07:38 → M PCU 02-16 16:52 → M MSPAV 02-21 12:36
PROVIDERS: ADMIT Internal Medicine; ATTEND General Practice
PROC: 0DBK8ZX Excision of Ascending Colon, Via Natural or Artificial Opening Endoscopic, Diagnostic (ICD-10-PCS; 2019-02-20)
PROC: 0DBL8ZX Excision of Transverse Colon, Via Natural or Artificial Opening Endoscopic, Diagnostic (ICD-10-PCS; 2019-02-20)
PROC: 0DB38ZX Excision of Lower Esophagus, Via Natural or Artificial Opening Endoscopic, Diagnostic (ICD-10-PCS; principal; 2019-02-20 13:47)
DX: I49.3 Ventricular premature depolarization (principal); J96.01 Acute respiratory failure with hypoxia; N17.9 Acute kidney failure, unspecified; K52.1 Toxic gastroenteritis and colitis; E87.0 Hyperosmolality and hypernatremia; E46 Unspecified protein-calorie malnutrition; I50.32 Chronic diastolic (congestive) heart failure; L27.0 Generalized skin eruption due to drugs and medicaments taken internally; E87.70 Fluid overload, unspecified; R53.81 Other malaise; I27.20 Pulmonary hypertension, unspecified; I11.0 Hypertensive heart disease with heart failure; M81.0 Age-related osteoporosis without current pathological fracture; T36.1X5A Adverse effect of cephalosporins and other beta-lactam antibiotics, initial encounter; E78.5 Hyperlipidemia, unspecified; K21.0 Gastro-esophageal reflux disease with esophagitis; E86.0 Dehydration; K44.9 Diaphragmatic hernia without obstruction or gangrene; K57.30 Diverticulosis of large intestine without perforation or abscess without bleeding; R51 Headache; R62.7 Adult failure to thrive; R63.0 Anorexia; N28.1 Cyst of kidney, acquired; K29.50 Unspecified chronic gastritis without bleeding; K64.8 Other hemorrhoids; D12.2 Benign neoplasm of ascending colon; D12.3 Benign neoplasm of transverse colon; Z98.41 Cataract extraction status, right eye; Z98.42 Cataract extraction status, left eye; Z90.49 Acquired absence of other specified parts of digestive tract; Z79.82 Long term (current) use of aspirin; Z79.899 Other long term (current) drug therapy; Z87.891 Personal history of nicotine dependence

== ENCOUNTER → 2019-07-01 | Outpatient (CLI) | payer MEDICARE ==
[~2019-07-01] MED LIST: ASPI81TA85 PO; BENA40TA5 PO; CALC-239 PO; CETI10TA PO; D-101000 PO; DOXY-350 PO; MULTTAB61 PO; OMEG10002 PO; PRAV20TA2 PO; PRED10TA2 PO; PROT1TAB2 PO; RANI150T PO; TRIA1OI EXT
--- NOTE | 2019-07-01 14:35 | REP ---
Nuclear renal scintigraphy with differential flow and function: History: Atherosclerosis of the renal arteries. Comparison CT study February 16, 2019. Comparison sonography February 13, 2019. Technique: 8.0 mCi technetium 99m MAG-3 is injected and sequential posterior flow and excretory phase images are acquired. Renal cortical regions of interest are drawn and time activity curves are plotted for renal functional analysis. Scintigraphic findings: Posterior flow study shows normal symmetric perfusion of the renal beds. Excretory phase images show no scintigraphic evidence of renal mass. There is no evidence of obstructive uropathy. Differential function analysis shows mild asymmetry of renal cortical counts, 59% right and 41% left. Time to peak activity is normal less than 1 minute bilaterally. Time to half max activity is slightly delayed, 19 minutes on the left and 13.8 minutes on the right, (normal 10.5-11.0 minutes). Renal excretion curves are slightly flattened. Impression: Slight flattening of the renal excretion curves bilaterally. No evidence of obstructive uropathy seen. Question chronic medical renal disease. Electronically Signed by Milind Hernandez MD 07/01/2019 06:56 P
== END ==
LOC: M RAD 12:26
PROVIDERS: ATTEND Internal Medicine Nephrology
DX: I70.1 Atherosclerosis of renal artery (principal)
CPT/HCPCS: 78707; A9562

== ENCOUNTER → 2020-10-16 | Outpatient (CLI) | payer MEDICARE ==
[~2020-10-16] MED LIST changes: +ASPI81TA26 PO; -ASPI81TA85 PO; +ASPI81TA86 PO; +D31000TA2 PO; +FAMO40TA3 PO
== END ==
LOC: M LABSMTC 09:31
PROVIDERS: ATTEND Anesthesiology
DX: Z01.812 Encounter for preprocedural laboratory examination (principal); Z20.822 Contact with and (suspected) exposure to COVID-19

== ENCOUNTER 2020-10-21 08:54 | Day surgery (SDC) | payer MEDICARE ==
[~2020-10-21] VITALS: Ht 154.9 cm; Wt 56.9 kg
[~2020-10-21 08:54] MED LIST changes: +CEFUROXIME 1MG/0.1ML INTRACAMERAL INJ As Ordered ONE; +DUOVISC (0.50ML VISCOAT/0.55ML PROVISC) OPHTH KIT As Ordered ONE; +MIDAZOLAM INJ 2MG/2ML VIAL (J2250 PER 1MG) As Ordered ONE; +OFLOXACIN 0.3 % (OCUFLOX) OPTH SOL 5ML OS ONE; +PHENYLEPHRINE 2.5% OPHTH SOL 2ML OS ONE; +POVIDONE-IODINE 5% OPHTH PREP SOL 30ML As Ordered ONE; +PROPARACAINE 0.5% OPHTH SOL 15ML OS ONE; +TROPICAMIDE 1% OPHTH SOLN 2ML OS ONE; +fentaNYL 100 MCG/2 ML INJECTION (J3010) As Ordered ONE
[2020-10-21] MEDS ORDERED: BSS IRR 500ML/OMIDRIA 4ML IRR BAG (OR ONLY) As Ordered ONE (10:03)
[2020-10-21 11:42] VITALS: BP 141/72
--- NOTE | 2020-10-22 08:31 | RO ---
OPERATIVE NOTE DATE OF OPERATION: 10/21/2020 PREOPERATIVE DIAGNOSIS: 1. Visually significant nuclear sclerotic cataract, left eye. POSTOPERATIVE DIAGNOSIS: 1. Visually significant nuclear sclerotic cataract, left eye. PROCEDURE: 1. Cataract extraction with use of phacoemulsification, and placement of intraocular lens, [id number], 20.0 D, left eye. SURGEON: Jerzy Cervantes DO ANESTHESIA: Local (Omidria with MAC) COMPLICATIONS: None POSTOPERATIVE CONDITION: Stable INDICATIONS FOR SURGERY: 1. Blurred vision affecting patient's activities of daily living. DESCRIPTION OF PROCEDURE: The patient was seen in the preoperative area and properly identified. The correct operative eye was identified and marked. The patient received topical anesthetic, antibiotics, and topical dilating drops. The patient was then transferred to the operating room. The correct side was re-identified and a time-out was performed. The eye was prepped and draped in a sterile fashion. The eyelids were isolated with Tegaderm tape and the lids were held open with an adjustable speculum. A 1.0mm paracentesis incision was made. Omidria was then injected into the anterior chamber. Viscoelastic was then injected into the anterior chamber through the paracentesis. Using a 2.4mm sharp-tipped keratome, the anterior chamber was entered via a temporal clear cornea incision. A continuous curvilinear capsulorrhexis was created with Utrata forceps. Hydrodissection was performed with BSS on a blunt cannula until the nucleus was able to rotate freely. The crystalline lens was phacoemulsified and aspirated. Irrigation/aspiration was used to remove the cortical material Cohesive viscoelastic was placed into the capsular bag to deepen it. The implant was placed into the capsular bag and allowed to unfold. Placement was confirmed by visualizing the anterior capsulorrhexis. Irrigation/aspiration was used to remove the viscoelastic. The clear corneal incision was hydrated with BSS on a blunt cannula. The lens was well positioned. Intracameral antibiotic was injected into the anterior chamber. The incisions were then tested for leaks and found to be negative. The eye was then palpated for appropriate pressure and adjusted accordingly with BSS. The eyelid speculum was then carefully removed. A shield was placed over the eye. The patient tolerated the procedure well and was discharge to the recovery unit in a stable condition.
== END 2020-10-21 11:45 | disposition home or self-care (01) ==
LOC: M SDC 08:54
PROVIDERS: ATTEND Ophthalmology
DX: H25.12 Age-related nuclear cataract, left eye (principal); I10 Essential (primary) hypertension; E78.5 Hyperlipidemia, unspecified; K21.9 Gastro-esophageal reflux disease without esophagitis; Z87.891 Personal history of nicotine dependence; Z79.82 Long term (current) use of aspirin; Z79.899 Other long term (current) drug therapy
CPT/HCPCS: 66984; J1097; J2250; J3010; V2632